=== PATIENT | female | born 1960 | race African-American/Black ===

== ENCOUNTER 2016-08-26 11:54 | Inpatient (IN) | payer MEDICARE, MEDICAID ==
[2016-08-26] MEDS ORDERED: PREDNISONE 20 MG TABLET PO ONE (12:29)
[2016-08-26] MEDS ORDERED: IPRATROPIUM/ALBUTEROL 0.5-2.5 MG/3 ML AMPUL NEB ONE (12:29)
--- NOTE | 2016-08-26 12:31 | ER Document Report ---
ED Medical Screen (RME) - General Chief Complaint: Breathing Difficulty Stated Complaint: DIFFICULTY BREATHING Time Seen by Provider: 08/26/16 12:21 Mode of Arrival: Wheelchair Information source: Patient, Relative Notes: This is a 56-year-old female with a history of asthma and CHF who presents with cough and shortness of breath. She states that she has felt ill for 2 weeks but for the past 3 days it has gotten significantly worse. She recently finished a course of steroids prescribed by her primary care physician Dr. Queen , however she did not take the antibiotic that he prescribed because she said one dose made her feel worse. She denies any chest pain. She has had orthopnea and mild lower extremity swelling. No fevers or chills. She has a cough productive of brownish sputum. She states "I think I have pneumonia" I have greeted and performed a rapid initial assessment of this patient. A comprehensive ED assessment and evaluation of the patient, analysis of test results and completion of the medical decision making process will be conducted by additional ED providers. TRAVEL OUTSIDE OF THE [place] IN LAST 30 DAYS: No - Related Data Allergies/Adverse Reactions: MENDOZA Inhibitors [Mendoza Inhibitors] Allergy (Severe, Verified 08/26/16 12:03) ANGIOEDEMA Past Medical History - Social History Chew tobacco use (# tins/day): No Frequency of alcohol use: Rare - Past Medical History Cardiac Medical History: Reports: Hx Congestive Heart Failure - DX SINCE AGE 31 , Hx Hypertension Pulmonary Medical History: Reports: Hx Asthma, Hx Bronchitis - IN HOSPITAL A MONTH AGO, Hx COPD Denies: Hx Tuberculosis Renal/ Medical History: Denies: Hx Peritoneal Dialysis Psychiatric Medical History: Reports: Hx Depression Past Surgical History: Reports: Hx Tubal Ligation. Denies: Hx Adenoidectomy - Immunizations Hx Diphtheria, Pertussis, Tetanus Vaccination: Yes Physical Exam - Vital signs Vitals: Temp Pulse Resp BP Pulse Ox 98.9 F 95 20 126/66 H 92 08/26/16 12:03 08/26/16 12:03 08/26/16 12:03 08/26/16 12:03 08/26/16 12:03 Course - Vital Signs Vital signs: Temp Pulse Resp BP Pulse Ox 98.9 F 95 24 H 126/66 H 92 08/26/16 12:03 08/26/16 12:03 08/26/16 12:19 08/26/16 12:03 08/26/16 12:03
[2016-08-26 12:59] LABS: ABSOLUTE BASOPHILS # (AUTO) 0.1 10^3/uL (0.0-0.2); ABSOLUTE EOSINOPHILS # (AUTO) 0.1 10^3/uL (0.0-0.6); ABSOLUTE MONOCYTES (AUTO) 0.9 10^3/uL (0.1-1.4); ABSOLUTE NEUT (AUTO) 8.4 10^3/uL (1.7-8.2); BASOPHILS % (AUTO) 0.4 % (0-2); EOSINOPHILS % (AUTO) 0.9 % (0-6); MEAN CORPUSCULAR HEMOGLOBIN 21.4 pg (27.0-33.4); MEAN CORPUSCULAR HGB CONC 30.9 g/dL (32.0-36.0); MEAN CORPUSCULAR VOLUME 70 fl (80-97); MONOCYTES % (AUTO) 6.4 % (3-13); RED BLOOD COUNT 5.62 10^6/uL (3.72-5.28); RED CELL DISTRIBUTION WIDTH 15.8 % (11.5-14.0); SEGMENTED NEUTROPHILS % (AUTO) 62.3 % (42-78); WHITE BLOOD COUNT 13.4 10^3/uL (4.0-10.5)
[2016-08-26 13:12] LABS: ALANINE AMINOTRANSFERASE 23 U/L (9-52); ALBUMIN 3.6 g/dL (3.5-5.0); ALKALINE PHOSPHATASE 65 U/L (38-126); ANION GAP 7 (5-19); ASPARTATE AMINO TRANSFERASE 21 U/L (14-36); BILIRUBIN,DIRECT 0.2 mg/dL (0.0-0.4); BILIRUBIN,TOTAL 0.4 mg/dL (0.2-1.3); BLOOD UREA NITROGEN 8 mg/dL (7-20); CALCIUM 8.9 mg/dL (8.4-10.2); CHLORIDE 97 mmol/L (98-107); CREATINE KINASE 334 U/L (30-135); GLUCOSE 90 mg/dL (75-110); TOTAL PROTEIN 6.6 g/dL (6.3-8.2)
--- NOTE | 2016-08-26 13:17 | RADIOLOGY REPORT (SQ) ---
EXAM DESCRIPTION: CHEST SINGLE VIEW COMPLETED DATE/TIME: 08/26/2016 1:08 pm REASON FOR STUDY: productive cough, SOB, CHF history COMPARISON: 05/23/2014. NUMBER OF VIEWS: One view. TECHNIQUE: Single frontal radiographic view of the chest acquired. LIMITATIONS: None. FINDINGS: LUNGS AND PLEURA: No opacities, masses or pneumothorax. No pleural effusion. MEDIASTINUM AND HILAR STRUCTURES: No masses. Contour normal. HEART AND VASCULAR STRUCTURES: Heart enlarged without failure. Normal vasculature. BONES: No acute findings. HARDWARE: None in the chest. OTHER: No other significant finding. IMPRESSION: HEART ENLARGED WITHOUT FAILURE. NO OTHER SIGNIFICANT RADIOGRAPHIC FINDING IN THE CHEST. TECHNICAL DOCUMENTATION: JOB ID: [id number] [employer]- All Rights Reserved
[2016-08-26 13:24] LABS: CREATINE KINASE MB 2.83 ng/mL (<4.55)
[2016-08-26 13:25] LABS: CARBON DIOXIDE 40 mmol/L (22-30)
[2016-08-26 13:26] LABS: TROPONIN I < 0.012 ng/mL
[2016-08-26] MEDS ORDERED: DOXYCYCLINE HYCLATE INJ 100 MG VIAL IV ONE (13:42)
[2016-08-26] MEDS ORDERED: ALBUTEROL SULFATE 0.083% NEB 2.5 MG/3 ML AMPUL NEB ONE (13:42)
[2016-08-26] MEDS: MAGNESIUM SULFATE/D5W 100 ML IV SCH ×2 (14:14→15:25)
[2016-08-26 14:43] LABS: ARTERIAL BLOOD BASE EXCESS 11.7 mmol/L; ARTERIAL BLOOD O2 SATURATION 96.4 % (94-98)
[2016-08-26] MEDS ORDERED: POTASSIUM CHLORIDE 20 MEQ/15 ML UDCUP PO ONE (15:08)
--- NOTE | 2016-08-26 16:44 | ER Document Report ---
ED General - General Chief Complaint: Breathing Difficulty Stated Complaint: DIFFICULTY BREATHING Time Seen by Provider: 08/26/16 12:21 Mode of Arrival: Wheelchair TRAVEL OUTSIDE OF THE [place] IN LAST 30 DAYS: No - HPI Patient complains to provider of: Difficulty in breathing Notes: Patient coming in for evaluation of shortness of breath. Patient has seen her physician multiple times with prescriptions for steroids and antibiotics. Patient states she did not get her antibiotics filled. Patient states that she continues to smoke. Patient denies fever chills nausea vomiting diarrhea. Patient upon my evaluation is on oxygen to prevent hypoxia. Patient normally does not wear oxygen. - Related Data Allergies/Adverse Reactions: MENDOZA Inhibitors [Mendoza Inhibitors] Allergy (Severe, Verified 08/26/16 12:03) ANGIOEDEMA Home Medications: Current Home Medications Albuterol Sulfate [Albuterol Sulfate 2.5mg/3 mL] 1 vial IH Q4 PRN 08/26/16 [ History] Albuterol Sulfate [Ventolin HFA MDI 18 GM] 2 puff IH Q4 PRN 08/26/16 [History] Alprazolam [Xanax 0.5 mg Tablet] 0.5 mg PO Q12 08/26/16 [History] Budesonide/Formoterol Fumarate [Symbicort Hfa 80-4.5 Mcg Inhaler 6.9 gm] 1 puff IH Q12 08/26/16 [History] Ergocalciferol (Vitamin D2) [Vitamin D2] 50,000 unit PO MO@1000 08/26/16 [ History] Hydrochlorothiazide 25 mg PO DAILY 08/26/16 [History] Hydrocodone/Acetaminophen [Vicodin 5-300 mg Tablet] 2 tab PO Q8 PRN 08/26/16 [ History] Metoprolol Tartrate [Lopressor 25 mg Tablet] 12.5 mg PO Q12 08/26/16 [History] Mometasone Furoate [Nasonex] 1 spray NS BID 08/26/16 [History] Omeprazole 40 mg PO DAILY 08/26/16 [History] Potassium Chloride 10 meq PO DAILY 08/26/16 [History] Simvastatin [Zocor 20 mg Tablet] 20 mg PO QHS 08/26/16 [History] Past Medical History - General Information source: Patient, Relative - Social History Smoking Status: Current Every Day Smoker Chew tobacco use (# tins/day): No Frequency of alcohol use: Rare Family History: Reviewed & Not Pertinent Patient has suicidal ideation: No Patient has homicidal ideation: No - Past Medical History Cardiac Medical History: Reports: Hx Congestive Heart Failure - DX SINCE AGE 31 , Hx Hypertension Pulmonary Medical History: Reports: Hx Asthma, Hx Bronchitis - IN HOSPITAL A MONTH AGO, Hx COPD Denies: Hx Tuberculosis Renal/ Medical History: Denies: Hx Peritoneal Dialysis Psychiatric Medical History: Reports: Hx Depression Past Surgical History: Reports: Hx Tubal Ligation. Denies: Hx Adenoidectomy - Immunizations Hx Diphtheria, Pertussis, Tetanus Vaccination: Yes Hx Pneumococcal Vaccination: 03/16/12 Review of Systems - Review of Systems Constitutional: No symptoms reported EENT: No symptoms reported Cardiovascular: No symptoms reported Respiratory: Short of breath Gastrointestinal: No symptoms reported Genitourinary: No symptoms reported Female Genitourinary: No symptoms reported Musculoskeletal: No symptoms reported Skin: No symptoms reported Hematologic/Lymphatic: No symptoms reported Neurological/Psychological: No symptoms reported -: Yes All other systems reviewed and negative Physical Exam - Vital signs Vitals: Temp Pulse Resp BP Pulse Ox 98.9 F 95 20 126/66 H 92 08/26/16 12:03 08/26/16 12:03 08/26/16 12:03 08/26/16 12:03 08/26/16 12:03 Interpretation: Normal - General General appearance: Appears well, Alert - HEENT Head: Normocephalic, Atraumatic Eyes: Normal Pupils: PERRL - Respiratory Respiratory status: No respiratory distress Chest status: Nontender Breath sounds: Wheezing Chest palpation: Normal - Cardiovascular Rhythm: Regular Heart sounds: Normal auscultation Murmur: No - Abdominal Inspection: Normal Distension: No distension Bowel sounds: Normal Tenderness: Nontender Organomegaly: No organomegaly - Back Back: Normal, Nontender - Extremities General upper extremity: Normal inspection, Nontender, Normal color, Normal ROM , Normal temperature General lower extremity: Normal inspection, Nontender, Normal color, Normal ROM , Normal temperature, Normal weight bearing. No: Kelly's sign - Neurological Neuro grossly intact: Yes Cognition: Normal Orientation: AAOx4 Cushing Coma Scale Eye Opening: Spontaneous Cushing Coma Scale Verbal: Oriented Jose Coma Scale Motor: Obeys Commands Cushing Coma Scale Total: 15 Speech: Normal Motor strength normal: LUE, RUE, LLE, RLE Sensory: Normal - Psychological Associated symptoms: Normal affect, Normal mood - Skin Skin Temperature: Warm Skin Moisture: Dry Skin Color: Normal Course - Re-evaluation Re-evalutation: 08/26/16 19:11 Patient coming in for evaluation of shortness of breath. Patient has an elevated bicarb therefore an ABG was performed showing hypercarbia. Oxygenation still remained steady on O2 therefore will continue this for I do not think patient will require BiPAP at this time. Potassium was replaced orally and IV. Magnesium was given multiple rounds of laser treatments patient was started on doxycycline. Patient's case was discussed with PCP will admit for further evaluation. - Vital Signs Vital signs: Temp Pulse Resp BP Pulse Ox 98.9 F 95 25 H 121/74 94 08/26/16 12:03 08/26/16 12:03 08/26/16 16:00 08/26/16 14:01 08/26/16 16:00 - Laboratory Result Diagrams: 08/26/16 12:33 08/26/16 12:33 Laboratory results interpreted by me: 08/26/16 08/26/16 08/26/16 12:33 12:33 14:30 WBC 13.4 H RBC 5.62 H MCV 70 L MCH 21.4 L MCHC 30.9 L RDW 15.8 H Absolute Neutrophils 8.4 H Carbonic Acid 1.94 H ABG pCO2 64.5 H ABG HCO3 39.1 H ABG Total CO2 41.0 H Potassium 3.0 L* Chloride 97 L Carbon Dioxide 40 H* Creatine Kinase 334 H Critical Care Note - Critical Care Note Total time excluding time spent on procedures (mins): 35 Comments: Multiple evaluation for hypoxia respiratory distress. Discharge - Discharge Clinical Impression: Acute respiratory failure with hypercapnia COPD (chronic obstructive pulmonary disease) Qualifiers: COPD type: unspecified COPD Qualified Code(s): J44.9 - Chronic obstructive pulmonary disease, unspecified Admitting Provider: [facility] Admitted: [facility]
[2016-08-26] MEDS: POTASSI CL 20 MEQ/50 ML RIDER 50 ML IV SCH ×2 (17:34→18:51)
[2016-08-26] MEDS: ALBUTEROL SULFATE 0.083% NEB 2.5 MG/3 ML AMPUL NEB SCH (21:04)
[2016-08-26] MEDS ORDERED: DOCUSATE SODIUM 100 MG CAPSULE PO PRN (21:17)
[2016-08-26] MEDS ORDERED: ACETAMINOPHEN 325 MG TABLET PO PRN (21:18)
[2016-08-26] MEDS ORDERED: METHYLPREDNISOLONE INJ 40 MG/1 ML SDV IV ONE (21:40)
[2016-08-26] MEDS: SIMVASTATIN 10 MG TABLET PO SCH (21:57)
[2016-08-26] MEDS: METOPROLOL TARTRATE 25 MG TABLET PO SCH (21:58)
[2016-08-26] MEDS: ALPRAZOLAM 0.5 MG TABLET PO SCH (21:58)
[2016-08-26] MEDS: BUDESONIDE/FORMOTEROL 80-4.5 MCG 60 PUFF/6.9 GM MDI IH SCH (21:59)
[2016-08-26] MEDS ORDERED: [UNRECOGNIZED DRUG - OTHER] IV ONE (22:00)
[2016-08-26] MEDS ORDERED: D5W IV ONE (22:00)
--- NOTE | 2016-08-26 22:37 | EKG REPORT ---
SEVERITY:- ABNORMAL ECG - SINUS RHYTHM PROBABLE LEFT VENTRICULAR HYPERTROPHY : Confirmed by: Thuan Mondragon 26-Aug-2016 22:36:09
[2016-08-27] MEDS: ALBUTEROL SULFATE 0.083% NEB 2.5 MG/3 ML AMPUL NEB SCH ×2 (00:31→02:10)
[2016-08-27] MEDS: LEVALBUTEROL HCL NEB 1.25 MG/3 ML AMPUL NEB SCH ×4 (02:13→20:48)
[2016-08-27] MEDS: LANSOPRAZOLE 30 MG TAB.RAP.DR PO SCH (05:01)
[2016-08-27] MEDS: METHYLPREDNISOLONE INJ 40 MG/1 ML SDV IV SCH ×4 (05:01→23:14)
[2016-08-27 05:52] LABS: HEMATOCRIT 37.4 % (36.0-47.0); HEMOGLOBIN 11.6 g/dL (12.0-15.5); HGB HCT DIFFERENCE -2.6; MEAN CORPUSCULAR HEMOGLOBIN 21.5 pg (27.0-33.4); MEAN CORPUSCULAR HGB CONC 30.9 g/dL (32.0-36.0); MEAN CORPUSCULAR VOLUME 69 fl (80-97); RED BLOOD COUNT 5.39 10^6/uL (3.72-5.28); RED CELL DISTRIBUTION WIDTH 15.9 % (11.5-14.0); WHITE BLOOD COUNT 15.6 10^3/uL (4.0-10.5)
[2016-08-27 06:04] LABS: ALANINE AMINOTRANSFERASE 24 U/L (9-52); ALBUMIN 3.6 g/dL (3.5-5.0); ALKALINE PHOSPHATASE 61 U/L (38-126); ANION GAP 8 (5-19); ASPARTATE AMINO TRANSFERASE 19 U/L (14-36); BILIRUBIN,DIRECT 0.3 mg/dL (0.0-0.4); BILIRUBIN,TOTAL 0.5 mg/dL (0.2-1.3); BLOOD UREA NITROGEN 12 mg/dL (7-20); CARBON DIOXIDE 33 mmol/L (22-30); CHLORIDE 100 mmol/L (98-107); CHOLESTEROL 206.49 mg/dL (0-200); CREATININE RESULT 0.66 mg/dL (0.52-1.25); Direct HDL 74 mg/dL (>40); GLUCOSE 137 mg/dL (75-110); POTASSIUM 3.8 mmol/L (3.6-5.0); SODIUM 141.1 mmol/L (137-145); TOTAL PROTEIN 6.8 g/dL (6.3-8.2); TRIGLYCERIDES 71 mg/dL (<150)
[2016-08-27 06:14] LABS: DIRECT LDL 105 mg/dL (<100)
[2016-08-27] MEDS: ALPRAZOLAM 0.5 MG TABLET PO SCH ×2 (09:37→21:10)
[2016-08-27] MEDS: HYDROCHLOROTHIAZIDE 25 MG TABLET PO SCH (09:37)
[2016-08-27] MEDS: POTASSIUM CHLORIDE 10 MEQ TABLET.SA PO SCH (09:37)
[2016-08-27] MEDS: BUDESONIDE/FORMOTEROL 80-4.5 MCG 60 PUFF/6.9 GM MDI IH SCH ×2 (09:37→21:09)
[2016-08-27] MEDS: METOPROLOL TARTRATE 25 MG TABLET PO SCH ×2 (09:37→21:10)
[2016-08-27] MEDS: ENOXAPARIN SODIUM INJ 40 MG/0.4 ML DISP.SYRIN SUBCUT SCH (09:38)
[2016-08-27] MEDS ORDERED: [UNRECOGNIZED DRUG - OTHER] IV SCH (10:00)
[2016-08-27] MEDS ORDERED: D5W IV SCH (10:00)
[2016-08-27] MEDS ORDERED: (PENDING PHARMACY ID) (Mometasone Furoate [Nasonex] 1 SPRAY) NS SCH (10:00)
--- NOTE | 2016-08-27 14:11 | PDOC H&P ---
History of Present Illness Admission Date/PCP: 08/27/16 03:25 KEO CLIFFORD Patient complains of: Worsening wheezes and dyspnea History of Present Illness: JEF SIMPSON is a 56 year old female 56 yr old woman with hx of COPD/Asthma/HTN/Hyperlipidemia/CHF- diastolic dysfunction/GERD/YVONNE on BIPAP/Rhinitis/Vitamin Def/Hypokalemia/Depression/ Anxiety disorder/Morbid obesity/Chronic smoker, who has been having worsening wheezes and dyspnea despite course of antibiotics and prednisone on outpatient , hence she decided to come to ER for mgt. Past Medical History Cardiac Medical History: Reports: Congestive Heart Failure - DX SINCE AGE 31, Hypertension Pulmonary Medical History: Reports: Asthma, Bronchitis - IN HOSPITAL A MONTH AGO , Chronic Obstructive Pulmonary Disease (COPD) Denies: Tuberculosis Psychiatric Medical History: Reports: Depression Hematology: Denies: Anemia Past Surgical History Past Surgical History: Reports: Tubal Ligation Denies: Adenoidectomy Social History Smoking Status: Current Some Day Smoker Cigarettes Packs Per Day: 1 Last Time Smoked: 08/26/16 Frequency of Alcohol Use: None Hx Recreational Drug Use: No Drugs: None Hx Prescription Drug Abuse: Yes Family History Family History: Reviewed & Not Pertinent Parental Family History Reviewed: Yes Children Family History Reviewed: Yes Sibling(s) Family History Reviewed.: Yes Medication/Allergy Home Medications: Albuterol Sulfate [Albuterol Sulfate 2.5mg/3 mL] 1 vial IH Q4 PRN 08/26/16 Albuterol Sulfate [Ventolin HFA MDI 18 GM] 2 puff IH Q4 PRN 08/26/16 Alprazolam [Xanax 0.5 mg Tablet] 0.5 mg PO Q12 08/26/16 Budesonide/Formoterol Fumarate [Symbicort Hfa 80-4.5 Mcg Inhaler 6.9 gm] 1 puff IH Q12 08/26/16 Ergocalciferol (Vitamin D2) [Vitamin D2] 50,000 unit PO MO@1000 08/26/16 Hydrochlorothiazide 25 mg PO DAILY 08/26/16 Hydrocodone/Acetaminophen [Vicodin 5-300 mg Tablet] 2 tab PO Q8 PRN 08/26/16 Metoprolol Tartrate [Lopressor 25 mg Tablet] 12.5 mg PO Q12 08/26/16 Mometasone Furoate [Nasonex] 1 spray NS BID 08/26/16 Omeprazole 40 mg PO DAILY 08/26/16 Potassium Chloride 10 meq PO DAILY 08/26/16 Simvastatin [Zocor 20 mg Tablet] 20 mg PO QHS 08/26/16 Allergies/Adverse Reactions: MENDOZA Inhibitors [Mendoza Inhibitors] Allergy (Severe, Verified 08/26/16 12:03) ANGIOEDEMA Review of Systems All systems: as per PMH Constitutional: PRESENT: as per HPI Eyes: PRESENT: as per HPI Ears: PRESENT: as per HPI Nose, Mouth, and Throat: PRESENT: as per HPI Breasts: PRESENT: as per HPI Cardiovascular: PRESENT: dyspnea on exertion Respiratory: PRESENT: cough, dyspnea - wheezes Gastrointestinal: PRESENT: as per HPI Genitourinary: PRESENT: as per HPI Integumentary: ABSENT: as per HPI, erythema, lesions, pruritus, rash, wounds, other Neurological: PRESENT: as per HPI Psychiatric: PRESENT: anxiety Physical Exam Vital Signs: Temp Pulse Resp BP Pulse Ox 97.4 F 83 21 H 116/62 94 08/27/16 11:55 08/27/16 11:55 08/27/16 11:55 08/27/16 11:55 08/27/16 11:55 Intake & Output 08/26/16 08/27/16 08/28/16 06:59 06:59 06:59 Intake Total 521 Balance 521 Weight 113.8 kg General appearance: PRESENT: mild distress, morbidly obese Head exam: PRESENT: atraumatic, normocephalic Eye exam: PRESENT: EOMI, PERRLA Ear exam: PRESENT: normal external ear exam, TM's normal bilaterally Mouth exam: PRESENT: moist, neck supple Neck exam: PRESENT: full ROM Respiratory exam: PRESENT: decreased breath sounds, wheezes Cardiovascular exam: PRESENT: +S1, +S2 Pulses: PRESENT: +2 pedal pulses bilateral GI/Abdominal exam: PRESENT: normal bowel sounds, soft Extremities exam: PRESENT: full ROM Neurological exam: PRESENT: alert, awake, oriented to person, oriented to place , oriented to time, CN II-XII grossly intact Psychiatric exam: PRESENT: anxious, normal mood Results Laboratory Results: 08/27/16 05:24 08/27/16 05:24 08/27/16 08/27/16 08/27/16 05:24 05:24 05:24 WBC 15.6 H RBC 5.39 H Hgb 11.6 L Hct 37.4 MCV 69 L MCH 21.5 L MCHC 30.9 L RDW 15.9 H Plt Count 147 L Sodium 141.1 Potassium 3.8 Chloride 100 Carbon Dioxide 33 H Anion Gap 8 BUN 12 Creatinine 0.66 Est GFR ( Amer) > 60 Est GFR (Non-Af Amer) > 60 Glucose 137 H Calcium 9.0 Total Bilirubin 0.5 AST 19 ALT 24 Alkaline Phosphatase 61 Total Protein 6.8 Albumin 3.6 Triglycerides 71 Cholesterol 206.49 H LDL Cholesterol Direct 105 H VLDL Cholesterol 14.0 HDL Cholesterol 74 TSH 0.08 L Impressions: Chest X-Ray 08/26/16 12:28 IMPRESSION: HEART ENLARGED WITHOUT FAILURE. NO OTHER SIGNIFICANT RADIOGRAPHIC FINDING IN THE CHEST. Assessment & Plan - Diagnosis (1) Acute respiratory failure with hypercapnia Is this a current diagnosis for this admission?: YesPlan: Ct with Oxygen by N/C at 2 L/min; Solumedrol 80 mg q6h IV; Levaquin 500 mg qd IV ; Xopenex nebs 1.25 mg q6h ; Duonebs q4h prn; Symbicort 160/4.5 2 puffs BID. (2) COPD exacerbation Is this a current diagnosis for this admission?: YesPlan: Ct with Oxygen 2 L/min; Solumedrol 80 mg q6h IV; Levaquin 500 mg qd IV; Xopenex nebs 1.25 mg q6h; Duonebs q4h prn; Symbicort 160/4.5 2 puffs BID. (3) Hypertension Is this a current diagnosis for this admission?: YesPlan: Ct with Metoprolol tartrte 12.5 mg BID po; HCTZ 25 mg qd po; 2 g sodium diet. (4) Hyperlipidemia Qualifiers: Hyperlipidemia type: mixed hyperlipidemia Qualified Code(s): E78.2 - Mixed hyperlipidemia Is this a current diagnosis for this admission?: YesPlan: Ct with Simvastatin 20mg qhs po; 200 mg cholesterol diet. (5) Chronic diastolic (congestive) heart failure Is this a current diagnosis for this admission?: YesPlan: Ct with Lasix 20 mg qd po; KCL 20 MEQ qd po; strict input/output chart; Daily wt; monitor chemistries daily. (6) Reflux esophagitis Is this a current diagnosis for this admission?: YesPlan: Ct with Prevacid 30 mg qd po since we do not have Ompeprazole in our formulary. (7) Osteoarthritis Qualifiers: Osteoarthritis location: multiple joints Is this a current diagnosis for this admission?: YesPlan: Ct with [place] 5/325 2 tablets q8h prn; Tylenol 650 mg q6h prn po. (8) Vitamin D deficiency Is this a current diagnosis for this admission?: YesPlan: Ct with Vitamin D 47906wh po weekly on Mondays. (9) Rhinitis, allergic Is this a current diagnosis for this admission?: YesPlan: Ct with Claritin 10 mg qd po; Nasonex nasal spray- 2 sprays daily. (10) Obstructive sleep apnea Is this a current diagnosis for this admission?: YesPlan: Ct with BIPAP; F/u respiratory therapist. (11) Depression Qualifiers: Depression Type: major depressive disorder Is this a current diagnosis for this admission?: YesPlan: Ct with Trazodone 100 mg qd po. (12) Anxiety disorder Is this a current diagnosis for this admission?: YesPlan: Ct with Xanax 0.5 mg BID po (13) Morbid obesity with BMI of 40.0-44.9, adult Is this a current diagnosis for this admission?: YesPlan: Ct with dietary mgt and exercise counseling. (14) Smoker Is this a current diagnosis for this admission?: YesPlan: Ct with Nicotine patch 14 mg qd. (15) DVT prophylaxis Is this a current diagnosis for this admission?: YesPlan: Ct with Lovenox 40 mg qd subcut; SCD. - Time Time Spent: 30 to 50 Minutes Smoking Cessation Education: 3 to 10 minutes Medications reviewed and adjusted accordingly: Yes Anticipated discharge: Home Within: within 72 hours - Inpatient Certification Medical Necessity: Failure to Improve With Outpatient Therapy, Significant Comorbidiites Make Outpatient Treatment Too Risky, Need Close Monitoring Due to Risk of Patient Decompensation, Need for Nebulizer Therapy and Monitoring of Response, Need for IV Antibiotics
[2016-08-27] MEDS ORDERED: NICOTINE 14 MG/24 HR PATCH.TD24 TD ONE (15:00)
[2016-08-27] MEDS: HYDROCODONE/ACETAMINOPHEN 5-325 MG TABLET PO PRN ×2 (15:00→23:15)
[2016-08-27] MEDS: SIMVASTATIN 10 MG TABLET PO SCH (21:09)
[2016-08-28] MEDS: LEVALBUTEROL HCL NEB 1.25 MG/3 ML AMPUL NEB SCH ×4 (02:15→20:49)
[2016-08-28 04:52] LABS: HEMATOCRIT 37.6 % (36.0-47.0); HEMOGLOBIN 11.6 g/dL (12.0-15.5); HGB HCT DIFFERENCE -2.8; MEAN CORPUSCULAR HEMOGLOBIN 21.4 pg (27.0-33.4); MEAN CORPUSCULAR HGB CONC 30.8 g/dL (32.0-36.0); MEAN CORPUSCULAR VOLUME 70 fl (80-97); RED BLOOD COUNT 5.41 10^6/uL (3.72-5.28); RED CELL DISTRIBUTION WIDTH 15.7 % (11.5-14.0); WHITE BLOOD COUNT 21.3 10^3/uL (4.0-10.5)
[2016-08-28 05:08] LABS: BAND NEUTROPHILS % (MANUAL) 1 % (3-5); BASOPHILS % (MANUAL) 0 % (0-2); EOSINOPHILS % (MANUAL) 0 % (0-6); LYMPHOCYTES % (MANUAL) 3 % (13-45); TOTAL CELLS COUNTED 100
[2016-08-28 05:09] LABS: ANISOCYTOSIS 1+; HYPOCHROMASIA 1+; MICROCYTOSIS 2+
[2016-08-28 05:15] LABS: ALANINE AMINOTRANSFERASE 20 U/L (9-52); ALBUMIN 3.7 g/dL (3.5-5.0); ALKALINE PHOSPHATASE 89 U/L (38-126); ANION GAP 9 (5-19); ASPARTATE AMINO TRANSFERASE 18 U/L (14-36); BILIRUBIN,DIRECT 0.3 mg/dL (0.0-0.4); BILIRUBIN,TOTAL 0.5 mg/dL (0.2-1.3); BLOOD UREA NITROGEN 17 mg/dL (7-20); CALCIUM 9.5 mg/dL (8.4-10.2); CARBON DIOXIDE 33 mmol/L (22-30); CHLORIDE 100 mmol/L (98-107); CREATININE RESULT 0.75 mg/dL (0.52-1.25); GLUCOSE 186 mg/dL (75-110); POTASSIUM 3.6 mmol/L (3.6-5.0); SODIUM 141.5 mmol/L (137-145); TOTAL PROTEIN 6.8 g/dL (6.3-8.2)
[2016-08-28] MEDS: LANSOPRAZOLE 30 MG TAB.RAP.DR PO SCH (05:21)
[2016-08-28] MEDS: METHYLPREDNISOLONE INJ 40 MG/1 ML SDV IV SCH (05:22)
[2016-08-28] MEDS: NICOTINE 14 MG/24 HR PATCH.TD24 TD SCH (10:00)
[2016-08-28] MEDS: METOPROLOL TARTRATE 25 MG TABLET PO SCH ×2 (10:00→21:13)
[2016-08-28] MEDS: ENOXAPARIN SODIUM INJ 40 MG/0.4 ML DISP.SYRIN SUBCUT SCH (10:00)
[2016-08-28] MEDS: BUDESONIDE/FORMOTEROL 80-4.5 MCG 60 PUFF/6.9 GM MDI IH SCH ×2 (10:00→21:15)
[2016-08-28] MEDS: HYDROCHLOROTHIAZIDE 25 MG TABLET PO SCH (10:00)
[2016-08-28] MEDS: HYDROCODONE/ACETAMINOPHEN 5-325 MG TABLET PO PRN ×2 (10:00→21:14)
[2016-08-28] MEDS: POTASSIUM CHLORIDE 10 MEQ TABLET.SA PO SCH (10:00)
[2016-08-28] MEDS: ALPRAZOLAM 0.5 MG TABLET PO SCH ×2 (10:00→21:14)
[2016-08-28] MEDS: METHYLPREDNISOLONE INJ 125 MG/2 ML SDV IV SCH ×3 (11:19→23:25)
--- NOTE | 2016-08-28 13:21 | PDOC PROGRESS REPORT ---
Subjective Progress Note for:: 08/28/16 Subjective:: She is getting better and the wheezes and dyspnea have decreased. She has leukocytosis due to steroids; she has no fever. WE will decrease Solumedrol to 60 mg Q6H IV. We will continue to monitor her at [facility]. Physical Exam Vital Signs: Temp Pulse Resp BP Pulse Ox 98.4 F 72 21 H 124/75 100 08/28/16 08:21 08/28/16 08:21 08/28/16 08:21 08/28/16 08:21 08/28/16 08:21 Intake & Output 08/27/16 08/28/16 08/29/16 06:59 06:59 06:59 Intake Total 521 2367 Balance 521 2367 Weight 115.4 kg General appearance: PRESENT: cooperative, mild distress, morbidly obese Head exam: PRESENT: atraumatic, normocephalic Eye exam: PRESENT: EOMI, PERRLA Ear exam: PRESENT: normal external ear exam, TM's normal bilaterally Mouth exam: PRESENT: moist, neck supple, tongue midline Respiratory exam: PRESENT: decreased breath sounds, wheezes Cardiovascular exam: PRESENT: +S1, +S2 Pulses: PRESENT: +2 pedal pulses bilateral GI/Abdominal exam: PRESENT: normal bowel sounds, soft Rectal exam: PRESENT: deferred Extremities exam: PRESENT: full ROM Musculoskeletal exam: PRESENT: full ROM Neurological exam: PRESENT: alert, awake, oriented to person, oriented to place , oriented to time Psychiatric exam: PRESENT: normal mood Results Laboratory Results: 08/28/16 04:31 08/28/16 04:31 08/27/16 08/28/16 08/28/16 05:24 04:31 04:31 WBC 21.3 H RBC 5.41 H Hgb 11.6 L Hct 37.6 MCV 70 L MCH 21.4 L MCHC 30.8 L RDW 15.7 H Plt Count 152 Seg Neutrophils % Not Reportable Lymphocytes % Not Reportable Monocytes % Not Reportable Eosinophils % Not Reportable Basophils % Not Reportable Absolute Neutrophils Not Reportable Absolute Lymphocytes Not Reportable Absolute Monocytes Not Reportable Absolute Eosinophils Not Reportable Absolute Basophils Not Reportable Sodium 141.5 Potassium 3.6 Chloride 100 Carbon Dioxide 33 H Anion Gap 9 BUN 17 Creatinine 0.75 Est GFR ( Amer) > 60 Est GFR (Non-Af Amer) > 60 Glucose 186 H Calcium 9.5 Total Bilirubin 0.5 AST 18 ALT 20 Alkaline Phosphatase 89 Total Protein 6.8 Albumin 3.7 TSH Free T4 1.06 08/28/16 04:31 WBC RBC Hgb Hct MCV MCH MCHC RDW Plt Count Seg Neutrophils % Lymphocytes % Monocytes % Eosinophils % Basophils % Absolute Neutrophils Absolute Lymphocytes Absolute Monocytes Absolute Eosinophils Absolute Basophils Sodium Potassium Chloride Carbon Dioxide Anion Gap BUN Creatinine Est GFR ( Amer) Est GFR (Non-Af Amer) Glucose Calcium Total Bilirubin AST ALT Alkaline Phosphatase Total Protein Albumin TSH 0.02 L Free T4 Impressions: Chest X-Ray 08/26/16 12:28 IMPRESSION: HEART ENLARGED WITHOUT FAILURE. NO OTHER SIGNIFICANT RADIOGRAPHIC FINDING IN THE CHEST. Assessment & Plan - Diagnosis (1) Acute respiratory failure with hypercapnia Is this a current diagnosis for this admission?: YesPlan: Ct with Oxygen by N/C at 2 L/min; Solumedrol 60 mg q6h IV; Levaquin 500 mg qd IV ; Xopenex nebs 1.25 mg q6h ; Duonebs q4h prn; Symbicort 160/4.5 2 puffs BID. (2) COPD exacerbation Is this a current diagnosis for this admission?: YesPlan: Ct with Oxygen 2 L/min; Solumedrol 60 mg q6h IV; Levaquin 500 mg qd IV; Xopenex nebs 1.25 mg q6h; Duonebs q4h prn; Symbicort 160/4.5 2 puffs BID. (3) Hypertension Is this a current diagnosis for this admission?: YesPlan: Ct with Metoprolol tartrte 12.5 mg BID po; HCTZ 25 mg qd po; 2 g sodium diet. (4) Hyperlipidemia Qualifiers: Hyperlipidemia type: mixed hyperlipidemia Qualified Code(s): E78.2 - Mixed hyperlipidemia Is this a current diagnosis for this admission?: YesPlan: Ct with Simvastatin 20mg qhs po; 200 mg cholesterol diet. (5) Chronic diastolic (congestive) heart failure Is this a current diagnosis for this admission?: YesPlan: Ct with Lasix 20 mg qd po; KCL 20 MEQ qd po; strict input/output chart; Daily wt; monitor chemistries daily. (6) Reflux esophagitis Is this a current diagnosis for this admission?: YesPlan: Ct with Prevacid 30 mg qd po since we do not have Ompeprazole in our formulary. (7) Osteoarthritis Qualifiers: Osteoarthritis location: multiple joints Is this a current diagnosis for this admission?: YesPlan: Ct with [place] 5/325 2 tablets q8h prn; Tylenol 650 mg q6h prn po. (8) Vitamin D deficiency Is this a current diagnosis for this admission?: YesPlan: Ct with Vitamin D 65963fv po weekly on Mondays. (9) Rhinitis, allergic Is this a current diagnosis for this admission?: YesPlan: Ct with Claritin 10 mg qd po; Nasonex nasal spray- 2 sprays daily. (10) Obstructive sleep apnea Is this a current diagnosis for this admission?: YesPlan: Ct with BIPAP; F/u respiratory therapist. (11) Depression Qualifiers: Depression Type: major depressive disorder Is this a current diagnosis for this admission?: YesPlan: Ct with Trazodone 100 mg qd po. (12) Anxiety disorder Is this a current diagnosis for this admission?: YesPlan: Ct with Xanax 0.5 mg BID po (13) Morbid obesity with BMI of 40.0-44.9, adult Is this a current diagnosis for this admission?: YesPlan: Ct with dietary mgt and exercise counseling. (14) Smoker Is this a current diagnosis for this admission?: YesPlan: Ct with Nicotine patch 14 mg qd. (15) DVT prophylaxis Is this a current diagnosis for this admission?: YesPlan: Ct with Lovenox 40 mg qd subcut; SCD.
[2016-08-28] MEDS: SIMVASTATIN 10 MG TABLET PO SCH (21:14)
[2016-08-28] MEDS: GUAIFENESIN SYRP 200 MG/10 ML UDC PO PRN (21:30)
[2016-08-29] MEDS: LEVALBUTEROL HCL NEB 1.25 MG/3 ML AMPUL NEB SCH ×4 (02:11→20:37)
[2016-08-29] MEDS: METHYLPREDNISOLONE INJ 125 MG/2 ML SDV IV SCH ×2 (05:44→11:12)
[2016-08-29] MEDS: LANSOPRAZOLE 30 MG TAB.RAP.DR PO SCH (05:45)
[2016-08-29 06:12] LABS: HEMATOCRIT 38.1 % (36.0-47.0); HEMOGLOBIN 11.7 g/dL (12.0-15.5); MEAN CORPUSCULAR HEMOGLOBIN 21.4 pg (27.0-33.4); MEAN CORPUSCULAR HGB CONC 30.8 g/dL (32.0-36.0); MEAN CORPUSCULAR VOLUME 70 fl (80-97); RED BLOOD COUNT 5.46 10^6/uL (3.72-5.28); RED CELL DISTRIBUTION WIDTH 15.8 % (11.5-14.0); WHITE BLOOD COUNT 22.3 10^3/uL (4.0-10.5)
[2016-08-29 06:17] LABS: ALANINE AMINOTRANSFERASE 28 U/L (9-52); ALBUMIN 3.5 g/dL (3.5-5.0); ALKALINE PHOSPHATASE 108 U/L (38-126); ANION GAP 11 (5-19); ASPARTATE AMINO TRANSFERASE 14 U/L (14-36); BILIRUBIN,DIRECT 0.3 mg/dL (0.0-0.4); BILIRUBIN,TOTAL 0.4 mg/dL (0.2-1.3); BLOOD UREA NITROGEN 18 mg/dL (7-20); CALCIUM 9.1 mg/dL (8.4-10.2); CARBON DIOXIDE 32 mmol/L (22-30); CHLORIDE 100 mmol/L (98-107); CREATININE RESULT 0.74 mg/dL (0.52-1.25); GLUCOSE 192 mg/dL (75-110); POTASSIUM 3.3 mmol/L (3.6-5.0); SODIUM 142.5 mmol/L (137-145); TOTAL PROTEIN 6.4 g/dL (6.3-8.2)
[2016-08-29 06:55] LABS: BAND NEUTROPHILS % (MANUAL) 1 % (3-5); BASOPHILS % (MANUAL) 0 % (0-2); EOSINOPHILS % (MANUAL) 0 % (0-6); HYPOCHROMASIA SLIGHT; LYMPHOCYTES % (MANUAL) 6 % (13-45); POLYCHROMASIA SLIGHT; TOTAL CELLS COUNTED 100; TOXIC GRANULATION SLIGHT; TOXIC VACUOLATION PRESENT
[2016-08-29 06:56] LABS: ANISOCYTOSIS SLIGHT; BURR CELLS SLIGHT; MICROCYTOSIS 2+; OVALOCYTES SLIGHT; POIKILOCYTOSIS SLIGHT; SCHISTOCYTES SLIGHT; TEAR DROP CELLS SLIGHT
[2016-08-29] MEDS: IPRATROPIUM/ALBUTEROL 0.5-2.5 MG/3 ML AMPUL NEB PRN (08:20)
[2016-08-29] MEDS: ALPRAZOLAM 0.5 MG TABLET PO SCH ×2 (09:26→21:43)
[2016-08-29] MEDS: METOPROLOL TARTRATE 25 MG TABLET PO SCH ×2 (09:27→21:44)
[2016-08-29] MEDS: POTASSIUM CHLORIDE 10 MEQ TABLET.SA PO SCH (09:27)
[2016-08-29] MEDS: HYDROCHLOROTHIAZIDE 25 MG TABLET PO SCH (09:27)
[2016-08-29] MEDS: BUDESONIDE/FORMOTEROL 80-4.5 MCG 60 PUFF/6.9 GM MDI IH SCH ×2 (09:28→21:43)
[2016-08-29] MEDS: ENOXAPARIN SODIUM INJ 40 MG/0.4 ML DISP.SYRIN SUBCUT SCH (09:28)
[2016-08-29] MEDS: NICOTINE 14 MG/24 HR PATCH.TD24 TD SCH (09:28)
[2016-08-29] MEDS: HYDROCODONE/ACETAMINOPHEN 5-325 MG TABLET PO PRN ×2 (09:51→21:47)
[2016-08-29] MEDS: LEVOFLOXACIN 500 MG/D5W RTU 500 MG/100 ML RTUPB IV SCH (11:11)
--- NOTE | 2016-08-29 13:35 | PDOC PROGRESS REPORT ---
Subjective Progress Note for:: 08/29/16 Subjective:: She is getting better and the wheezes and dyspnea have decreased. She has leukocytosis due to steroids; she has no fever. We will decrease Solumedrol to 60 mg Q6H IV. We will continue to monitor her at [facility].Her potassium today is 3.3 ; we will give her additional KCL [address] with kCL 20 MEQ qd po and monitor her chemistries. Physical Exam Vital Signs: Temp Pulse Resp BP Pulse Ox 97.8 F 90 18 120/75 93 08/29/16 08:23 08/29/16 08:24 08/29/16 08:24 08/29/16 08:23 08/29/16 08:24 Intake & Output 08/28/16 08/29/16 08/30/16 06:59 06:59 06:59 Intake Total 2367 1625 Balance 2367 1625 Weight 115.4 kg 115.5 kg General appearance: PRESENT: cooperative, mild distress, morbidly obese Head exam: PRESENT: atraumatic, normocephalic Eye exam: PRESENT: EOMI, PERRLA Ear exam: PRESENT: normal external ear exam, TM's normal bilaterally Mouth exam: PRESENT: moist, neck supple, tongue midline Respiratory exam: PRESENT: decreased breath sounds, wheezes Cardiovascular exam: PRESENT: +S1, +S2 Pulses: PRESENT: +2 pedal pulses bilateral GI/Abdominal exam: PRESENT: normal bowel sounds, soft Rectal exam: PRESENT: deferred Extremities exam: PRESENT: full ROM Musculoskeletal exam: PRESENT: full ROM Neurological exam: PRESENT: alert, awake, oriented to person, oriented to place , oriented to time Psychiatric exam: PRESENT: normal mood Results Laboratory Results: 08/29/16 05:17 08/29/16 05:17 08/29/16 08/29/16 05:17 05:17 WBC 22.3 H RBC 5.46 H Hgb 11.7 L Hct 38.1 MCV 70 L MCH 21.4 L MCHC 30.8 L RDW 15.8 H Plt Count 142 L Seg Neutrophils % Not Reportable Lymphocytes % Not Reportable Monocytes % Not Reportable Eosinophils % Not Reportable Basophils % Not Reportable Absolute Neutrophils Not Reportable Absolute Lymphocytes Not Reportable Absolute Monocytes Not Reportable Absolute Eosinophils Not Reportable Absolute Basophils Not Reportable Sodium 142.5 Potassium 3.3 L Chloride 100 Carbon Dioxide 32 H Anion Gap 11 BUN 18 Creatinine 0.74 Est GFR ( Amer) > 60 Est GFR (Non-Af Amer) > 60 Glucose 192 H Calcium 9.1 Total Bilirubin 0.4 AST 14 ALT 28 Alkaline Phosphatase 108 Total Protein 6.4 Albumin 3.5 Impressions: Chest X-Ray 08/26/16 12:28 IMPRESSION: HEART ENLARGED WITHOUT FAILURE. NO OTHER SIGNIFICANT RADIOGRAPHIC FINDING IN THE CHEST. Assessment & Plan - Diagnosis (1) Acute respiratory failure with hypercapnia Is this a current diagnosis for this admission?: YesPlan: Ct with Oxygen by N/C at 2 L/min; Solumedrol 60 mg q6h IV; Levaquin 500 mg qd IV ; Xopenex nebs 1.25 mg q6h ; Duonebs q4h prn; Symbicort 160/4.5 2 puffs BID. (2) COPD exacerbation Is this a current diagnosis for this admission?: YesPlan: Ct with Oxygen 2 L/min; Solumedrol 60 mg q6h IV; Levaquin 500 mg qd IV; Xopenex nebs 1.25 mg q6h; Duonebs q4h prn; Symbicort 160/4.5 2 puffs BID. (3) Hypertension Is this a current diagnosis for this admission?: YesPlan: Ct with Metoprolol tartrte 12.5 mg BID po; HCTZ 25 mg qd po; 2 g sodium diet. (4) Hyperlipidemia Qualifiers: Hyperlipidemia type: mixed hyperlipidemia Qualified Code(s): E78.2 - Mixed hyperlipidemia Is this a current diagnosis for this admission?: YesPlan: Ct with Simvastatin 20mg qhs po; 200 mg cholesterol diet. (5) Chronic diastolic (congestive) heart failure Is this a current diagnosis for this admission?: YesPlan: Ct with Lasix 20 mg qd po; KCL 20 MEQ qd po; strict input/output chart; Daily wt; monitor chemistries daily. (6) Reflux esophagitis Is this a current diagnosis for this admission?: YesPlan: Ct with Prevacid 30 mg qd po since we do not have Ompeprazole in our formulary. (7) Osteoarthritis Qualifiers: Osteoarthritis location: multiple joints Is this a current diagnosis for this admission?: YesPlan: Ct with [place] 5/325 2 tablets q8h prn; Tylenol 650 mg q6h prn po. (8) Vitamin D deficiency Is this a current diagnosis for this admission?: YesPlan: Ct with Vitamin D 84726cm po weekly on Mondays. (9) Rhinitis, allergic Is this a current diagnosis for this admission?: YesPlan: Ct with Claritin 10 mg qd po; Nasonex nasal spray- 2 sprays daily. (10) Obstructive sleep apnea Is this a current diagnosis for this admission?: YesPlan: Ct with BIPAP; F/u respiratory therapist. (11) Depression Qualifiers: Depression Type: major depressive disorder Is this a current diagnosis for this admission?: YesPlan: Ct with Trazodone 100 mg qd po. (12) Anxiety disorder Is this a current diagnosis for this admission?: YesPlan: Ct with Xanax 0.5 mg BID po (13) Morbid obesity with BMI of 40.0-44.9, adult Is this a current diagnosis for this admission?: YesPlan: Ct with dietary mgt and exercise counseling. (14) Smoker Is this a current diagnosis for this admission?: YesPlan: Ct with Nicotine patch 14 mg qd. (15) DVT prophylaxis Is this a current diagnosis for this admission?: YesPlan: Ct with Lovenox 40 mg qd subcut; SCD. (16) Hypokalemia Is this a current diagnosis for this admission?: YesPlan: She was given KCL 40 MEQ PO stat; then KCL 20 MEQ daily po; monitor chemistries daily.
[2016-08-29] MEDS ORDERED: POTASSIUM CHLORIDE 20 MEQ/15 ML UDCUP PO ONE (13:45)
[2016-08-29] MEDS: GUAIFENESIN SYRP 200 MG/10 ML UDC PO PRN (15:00)
[2016-08-29] MEDS: FLUTICASONE NASAL SPRAY 50 MCG/SPRY 120 SPRAY/16 GM NASL PRN (15:02)
[2016-08-29] MEDS ORDERED: ALPRAZOLAM 0.5 MG TABLET PO SCH (18:00)
[2016-08-29] MEDS: METHYLPREDNISOLONE INJ 40 MG/1 ML SDV IV SCH (21:43)
[2016-08-29] MEDS: SIMVASTATIN 10 MG TABLET PO SCH (21:43)
[2016-08-29] MEDS ORDERED: METHYLPREDNISOLONE INJ 125 MG/2 ML SDV IV SCH (22:00)
[2016-08-30] MEDS: LEVALBUTEROL HCL NEB 1.25 MG/3 ML AMPUL NEB SCH ×4 (01:50→19:45)
[2016-08-30 05:16] LABS: HEMATOCRIT 38.1 % (36.0-47.0); HEMOGLOBIN 11.8 g/dL (12.0-15.5); HGB HCT DIFFERENCE -2.7; MEAN CORPUSCULAR HEMOGLOBIN 21.4 pg (27.0-33.4); MEAN CORPUSCULAR HGB CONC 31.1 g/dL (32.0-36.0); MEAN CORPUSCULAR VOLUME 69 fl (80-97); RED BLOOD COUNT 5.52 10^6/uL (3.72-5.28); RED CELL DISTRIBUTION WIDTH 15.4 % (11.5-14.0); WHITE BLOOD COUNT 20.3 10^3/uL (4.0-10.5)
[2016-08-30 05:24] LABS: ALANINE AMINOTRANSFERASE 31 U/L (9-52); ALBUMIN 3.4 g/dL (3.5-5.0); ALKALINE PHOSPHATASE 88 U/L (38-126); ANION GAP 9 (5-19); ASPARTATE AMINO TRANSFERASE 16 U/L (14-36); BILIRUBIN,DIRECT 0.3 mg/dL (0.0-0.4); BILIRUBIN,TOTAL 0.4 mg/dL (0.2-1.3); BLOOD UREA NITROGEN 19 mg/dL (7-20); CALCIUM 9.1 mg/dL (8.4-10.2); CARBON DIOXIDE 34 mmol/L (22-30); CHLORIDE 100 mmol/L (98-107); CREATININE RESULT 0.72 mg/dL (0.52-1.25); GLUCOSE 135 mg/dL (75-110); POTASSIUM 3.3 mmol/L (3.6-5.0); SODIUM 142.6 mmol/L (137-145); TOTAL PROTEIN 6.3 g/dL (6.3-8.2)
[2016-08-30] MEDS: METHYLPREDNISOLONE INJ 40 MG/1 ML SDV IV SCH (05:34)
[2016-08-30] MEDS: LANSOPRAZOLE 30 MG TAB.RAP.DR PO SCH (05:34)
[2016-08-30 06:09] LABS: BASOPHILS % (MANUAL) 0 % (0-2); EOSINOPHILS % (MANUAL) 1 % (0-6); LYMPHOCYTES % (MANUAL) 14 % (13-45); TOTAL CELLS COUNTED 100
[2016-08-30 06:14] LABS: ANISOCYTOSIS SLIGHT; HYPOCHROMASIA 1+; MICROCYTOSIS 2+; OVALOCYTES 1+; POIKILOCYTOSIS 2+; STOMATOCYTES SLIGHT; TARGET CELLS 1+
[2016-08-30] MEDS: FLUTICASONE NASAL SPRAY 50 MCG/SPRY 120 SPRAY/16 GM NASL PRN (07:14)
[2016-08-30] MEDS: LORATADINE 10 MG TABLET PO SCH (10:46)
[2016-08-30] MEDS: METOPROLOL TARTRATE 25 MG TABLET PO SCH ×2 (10:46→21:14)
[2016-08-30] MEDS: HYDROCHLOROTHIAZIDE 25 MG TABLET PO SCH (10:47)
[2016-08-30] MEDS: POTASSIUM CHLORIDE 10 MEQ TABLET.SA PO SCH (10:47)
[2016-08-30] MEDS: ALPRAZOLAM 0.5 MG TABLET PO SCH ×2 (10:47→21:15)
[2016-08-30] MEDS: LEVOFLOXACIN 500 MG/D5W RTU 500 MG/100 ML RTUPB IV SCH (10:47)
[2016-08-30] MEDS: NICOTINE 14 MG/24 HR PATCH.TD24 TD SCH (10:47)
[2016-08-30] MEDS: ENOXAPARIN SODIUM INJ 40 MG/0.4 ML DISP.SYRIN SUBCUT SCH (10:48)
[2016-08-30] MEDS: BUDESONIDE/FORMOTEROL 80-4.5 MCG 60 PUFF/6.9 GM MDI IH SCH ×2 (10:50→21:14)
--- NOTE | 2016-08-30 11:44 | PDOC PROGRESS REPORT ---
Subjective Progress Note for:: 08/30/16 Subjective:: Patient complains of dryness of the throat and a lot of coughing last night. Wheezing has resolved. Shortness of breath significantly improved. Tolerating being off oxygen. Denies any chills or fever, diarrhea, PND orthopnea, no chest pain. Physical Exam Vital Signs: Temp Pulse Resp BP Pulse Ox 97.7 F 77 18 124/74 91 L 08/30/16 07:07 08/30/16 08:39 08/30/16 08:39 08/30/16 07:07 08/30/16 08:39 Intake & Output 08/29/16 08/30/16 08/31/16 06:59 06:59 06:59 Intake Total 1625 1885 Balance 1625 1885 Weight 115.5 kg 116.5 kg General appearance: PRESENT: no acute distress, cooperative, morbidly obese Head exam: PRESENT: normocephalic Eye exam: PRESENT: EOMI Ear exam: PRESENT: normal external ear exam. ABSENT: drainage Mouth exam: PRESENT: moist, neck supple Neck exam: ABSENT: JVD Respiratory exam: PRESENT: clear to auscultation quita. ABSENT: rhonchi, wheezes Cardiovascular exam: PRESENT: RRR. ABSENT: gallop GI/Abdominal exam: PRESENT: soft. ABSENT: distended, tenderness Extremities exam: ABSENT: pedal edema Neurological exam: PRESENT: alert, awake, oriented to person, oriented to place , oriented to time, oriented to situation Skin exam: PRESENT: dry, warm. ABSENT: cyanosis Results Laboratory Results: 08/30/16 04:41 08/30/16 04:41 08/29/16 08/30/16 08/30/16 05:17 04:41 04:41 WBC 20.3 H RBC 5.52 H Hgb 11.8 L Hct 38.1 MCV 69 L MCH 21.4 L MCHC 31.1 L RDW 15.4 H Plt Count 133 L Seg Neutrophils % Not Reportable Lymphocytes % Not Reportable Monocytes % Not Reportable Eosinophils % Not Reportable Basophils % Not Reportable Absolute Neutrophils Not Reportable Absolute Lymphocytes Not Reportable Absolute Monocytes Not Reportable Absolute Eosinophils Not Reportable Absolute Basophils Not Reportable Sodium 142.6 Potassium 3.3 L Chloride 100 Carbon Dioxide 34 H Anion Gap 9 BUN 19 Creatinine 0.72 Est GFR ( Amer) > 60 Est GFR (Non-Af Amer) > 60 Glucose 135 H Calcium 9.1 Magnesium 2.2 Total Bilirubin 0.4 AST 16 ALT 31 Alkaline Phosphatase 88 Total Protein 6.3 Albumin 3.4 L Impressions: Chest X-Ray 08/26/16 12:28 IMPRESSION: HEART ENLARGED WITHOUT FAILURE. NO OTHER SIGNIFICANT RADIOGRAPHIC FINDING IN THE CHEST. Assessment & Plan - Diagnosis (1) Acute respiratory failure with hypercapnia Is this a current diagnosis for this admission?: Yes (2) COPD exacerbation Is this a current diagnosis for this admission?: Yes (3) Chronic diastolic (congestive) heart failure Is this a current diagnosis for this admission?: Yes (4) Depression Qualifiers: Depression Type: major depressive disorder Major depression episode severity: unspecified Is this a current diagnosis for this admission?: Yes (5) Hyperlipidemia Qualifiers: Hyperlipidemia type: mixed hyperlipidemia Qualified Code(s): E78.2 - Mixed hyperlipidemia Is this a current diagnosis for this admission?: Yes (6) Hypertension Qualifiers: Hypertension type: essential hypertension Qualified Code(s): I10 - Essential (primary) hypertension Is this a current diagnosis for this admission?: Yes (7) Morbid obesity with BMI of 40.0-44.9, adult Is this a current diagnosis for this admission?: Yes (8) Obstructive sleep apnea Is this a current diagnosis for this admission?: Yes (9) Reflux esophagitis Is this a current diagnosis for this admission?: Yes (10) Anxiety disorder Qualifiers: Anxiety disorder type: unspecified anxiety disorder Qualified Code(s ): F41.9 - Anxiety disorder, unspecified Is this a current diagnosis for this admission?: Yes - Time Time Spent with patient: 25-34 minutes - Plan Summary Plan Summary: We are going to discontinue IV steroids and shifted to oral prednisone. Continue antibiotics. Try Tessalon Perles for coughing. Humidified oxygen. Discontinue intravenous fluids. If patient continues to be improving and stable in the morning we will discharge home.
[2016-08-30] MEDS ORDERED: PREDNISONE 20 MG TABLET PO ONE (12:00)
[2016-08-30] MEDS: BENZONATATE 100 MG CAPSULE PO SCH ×2 (13:46→21:14)
[2016-08-30] MEDS: IPRATROPIUM/ALBUTEROL 0.5-2.5 MG/3 ML AMPUL NEB PRN (17:25)
[2016-08-30] MEDS: SIMVASTATIN 10 MG TABLET PO SCH (21:15)
[2016-08-30] MEDS: HYDROCODONE/ACETAMINOPHEN 5-325 MG TABLET PO PRN (21:23)
[2016-08-31] MEDS: LEVALBUTEROL HCL NEB 1.25 MG/3 ML AMPUL NEB SCH ×4 (02:09→20:11)
[2016-08-31] MEDS: BENZONATATE 100 MG CAPSULE PO SCH ×3 (05:34→22:07)
[2016-08-31] MEDS: LANSOPRAZOLE 30 MG TAB.RAP.DR PO SCH (05:34)
[2016-08-31] MEDS: POTASSIUM CHLORIDE 10 MEQ TABLET.SA PO SCH (09:28)
[2016-08-31] MEDS: LEVOFLOXACIN 500 MG TABLET PO SCH (09:29)
[2016-08-31] MEDS: LORATADINE 10 MG TABLET PO SCH (09:29)
[2016-08-31] MEDS: PREDNISONE 20 MG TABLET PO SCH (09:29)
[2016-08-31] MEDS: NICOTINE 14 MG/24 HR PATCH.TD24 TD SCH (09:29)
[2016-08-31] MEDS: ALPRAZOLAM 0.5 MG TABLET PO SCH ×2 (09:29→22:07)
[2016-08-31] MEDS: HYDROCHLOROTHIAZIDE 25 MG TABLET PO SCH (09:30)
[2016-08-31] MEDS: BUDESONIDE/FORMOTEROL 80-4.5 MCG 60 PUFF/6.9 GM MDI IH SCH ×2 (09:31→22:08)
[2016-08-31] MEDS: METOPROLOL TARTRATE 25 MG TABLET PO SCH ×2 (09:31→22:07)
[2016-08-31] MEDS: ENOXAPARIN SODIUM INJ 40 MG/0.4 ML DISP.SYRIN SUBCUT SCH (09:31)
--- NOTE | 2016-08-31 10:47 | PDOC PROGRESS REPORT ---
Subjective Progress Note for:: 08/31/16 Subjective:: Patient reportedly did not feel well today. Still with some cough but medications are helping. Has some wheezing earlier this morning. Otherwise no reported respiratory distress, temperature spikes, nausea vomiting, diarrhea. Patient does not want to go home yet. Physical Exam Vital Signs: Temp Pulse Resp BP Pulse Ox 97.4 F 66 20 108/62 93 08/31/16 07:07 08/31/16 08:01 08/31/16 08:01 08/31/16 07:07 08/31/16 08:01 Intake & Output 08/30/16 08/31/16 09/01/16 06:59 06:59 06:59 Intake Total 1885 1364 Balance 1885 1364 Weight 116.5 kg 116.8 kg General appearance: PRESENT: no acute distress, morbidly obese Head exam: PRESENT: normocephalic Eye exam: PRESENT: EOMI Mouth exam: PRESENT: moist, neck supple Neck exam: ABSENT: JVD Respiratory exam: PRESENT: wheezes - Mild bilateral, air entry is good. ABSENT : crackles, rhonchi Cardiovascular exam: PRESENT: RRR. ABSENT: gallop GI/Abdominal exam: PRESENT: soft. ABSENT: distended - Obese, tenderness Extremities exam: ABSENT: pedal edema Neurological exam: PRESENT: alert, awake, oriented to person, oriented to place , oriented to time, oriented to situation Skin exam: PRESENT: dry, warm. ABSENT: cyanosis Results Laboratory Results: 08/30/16 04:41 08/30/16 04:41 Impressions: Chest X-Ray 08/26/16 12:28 IMPRESSION: HEART ENLARGED WITHOUT FAILURE. NO OTHER SIGNIFICANT RADIOGRAPHIC FINDING IN THE CHEST. Assessment & Plan - Diagnosis (1) Acute respiratory failure with hypercapnia Is this a current diagnosis for this admission?: Yes (2) COPD exacerbation Is this a current diagnosis for this admission?: Yes (3) Chronic diastolic (congestive) heart failure Is this a current diagnosis for this admission?: Yes (4) Depression Qualifiers: Depression Type: major depressive disorder Major depression episode severity: unspecified Is this a current diagnosis for this admission?: Yes (5) Hyperlipidemia Qualifiers: Hyperlipidemia type: mixed hyperlipidemia Qualified Code(s): E78.2 - Mixed hyperlipidemia Is this a current diagnosis for this admission?: Yes (6) Hypertension Qualifiers: Hypertension type: essential hypertension Qualified Code(s): I10 - Essential (primary) hypertension Is this a current diagnosis for this admission?: Yes (7) Morbid obesity with BMI of 40.0-44.9, adult Is this a current diagnosis for this admission?: Yes (8) Obstructive sleep apnea Is this a current diagnosis for this admission?: Yes (9) Reflux esophagitis Is this a current diagnosis for this admission?: Yes (10) Anxiety disorder Qualifiers: Anxiety disorder type: unspecified anxiety disorder Qualified Code(s ): F41.9 - Anxiety disorder, unspecified Is this a current diagnosis for this admission?: Yes - Time Time Spent with patient: 25-34 minutes - Plan Summary Plan Summary: Continue oral steroids. Continue nebulizers as needed. We will begin Combivent inhalers as needed. Patient already on inhaled steroids as well. Out of bed and ambulate around. Continue other medication and supportive care. Patient refused to go home today. Possibly discharge in a.m. if she feels better. Replace potassium and recheck level in the morning.
[2016-08-31] MEDS ORDERED: POTASSIUM CHLORIDE 10 MEQ TABLET.SA PO ONE (11:30)
[2016-08-31] MEDS: IPRATROPIUM/ALBUTEROL 120 PUFF/4 GM MDI IH PRN ×2 (12:28→18:01)
[2016-08-31] MEDS: HYDROCODONE/ACETAMINOPHEN 5-325 MG TABLET PO PRN (22:06)
[2016-08-31] MEDS: SIMVASTATIN 10 MG TABLET PO SCH (22:07)
[2016-09-01] MEDS: IPRATROPIUM/ALBUTEROL 120 PUFF/4 GM MDI IH PRN ×2 (02:09→17:30)
[2016-09-01] MEDS: LEVALBUTEROL HCL NEB 1.25 MG/3 ML AMPUL NEB SCH ×4 (02:23→20:03)
[2016-09-01] MEDS: ZOLPIDEM TARTRATE 5 MG TABLET PO PRN (04:24)
[2016-09-01] MEDS: LANSOPRAZOLE 30 MG TAB.RAP.DR PO SCH (05:13)
[2016-09-01] MEDS: BENZONATATE 100 MG CAPSULE PO SCH ×3 (05:13→21:26)
[2016-09-01 07:30] LABS: HEMATOCRIT 39.2 % (36.0-47.0); HEMOGLOBIN 12.2 g/dL (12.0-15.5); HGB HCT DIFFERENCE -2.6; MEAN CORPUSCULAR HEMOGLOBIN 21.5 pg (27.0-33.4); MEAN CORPUSCULAR HGB CONC 31.1 g/dL (32.0-36.0); MEAN CORPUSCULAR VOLUME 69 fl (80-97); RED BLOOD COUNT 5.67 10^6/uL (3.72-5.28); RED CELL DISTRIBUTION WIDTH 15.8 % (11.5-14.0); WHITE BLOOD COUNT 19.7 10^3/uL (4.0-10.5)
[2016-09-01 07:43] LABS: ANION GAP 8 (5-19); BLOOD UREA NITROGEN 21 mg/dL (7-20); CALCIUM 8.5 mg/dL (8.4-10.2); CARBON DIOXIDE 35 mmol/L (22-30); CHLORIDE 96 mmol/L (98-107); CREATININE RESULT 0.75 mg/dL (0.52-1.25); GLUCOSE 76 mg/dL (75-110); POTASSIUM 3.3 mmol/L (3.6-5.0); SODIUM 139.1 mmol/L (137-145)
[2016-09-01] MEDS ORDERED: ERGOCALCIFEROL (VITAMIN D2) 50000 UNIT (1.25 MG) CAPSULE PO SCH (10:00)
[2016-09-01] MEDS: POTASSIUM CHLORIDE 10 MEQ TABLET.SA PO SCH (10:28)
[2016-09-01] MEDS: HYDROCODONE/ACETAMINOPHEN 5-325 MG TABLET PO PRN ×2 (10:28→21:30)
[2016-09-01] MEDS: LEVOFLOXACIN 500 MG TABLET PO SCH (10:31)
[2016-09-01] MEDS: HYDROCHLOROTHIAZIDE 25 MG TABLET PO SCH (10:32)
[2016-09-01] MEDS: PREDNISONE 20 MG TABLET PO SCH (10:32)
[2016-09-01] MEDS: ALPRAZOLAM 0.5 MG TABLET PO SCH ×2 (10:32→21:26)
[2016-09-01] MEDS: LORATADINE 10 MG TABLET PO SCH (10:32)
[2016-09-01] MEDS: METOPROLOL TARTRATE 25 MG TABLET PO SCH ×2 (10:32→21:24)
[2016-09-01] MEDS: NICOTINE 14 MG/24 HR PATCH.TD24 TD SCH (10:32)
[2016-09-01] MEDS: BUDESONIDE/FORMOTEROL 80-4.5 MCG 60 PUFF/6.9 GM MDI IH SCH ×2 (10:33→21:24)
[2016-09-01] MEDS: ENOXAPARIN SODIUM INJ 40 MG/0.4 ML DISP.SYRIN SUBCUT SCH (10:33)
--- NOTE | 2016-09-01 13:17 | PDOC PROGRESS REPORT ---
Subjective Progress Note for:: 09/01/16 Subjective:: She is getting better and the wheezes and dyspnea have decreased. She has leukocytosis due to steroids; she has no fever. We will decrease Solumedrol to 60 mg Q6H IV. We will continue to monitor her at [facility].Her potassium today is 3.3 ; we will give her additional KCL 40 MEQ IV x1 and ct with kCL 20 MEQ qd po and monitor her chemistries.We will decrease her Prednisone to 40 mg qd po. For possible discharge home tomorrow. Physical Exam Vital Signs: Temp Pulse Resp BP Pulse Ox 98.9 F 79 22 H 115/69 94 09/01/16 12:50 09/01/16 12:50 09/01/16 12:50 09/01/16 12:50 09/01/16 12:50 Intake & Output 08/31/16 09/01/16 09/02/16 06:59 06:59 06:59 Intake Total 1364 2315 360 Balance 1364 2315 360 Weight 116.5 kg 117.1 kg General appearance: PRESENT: cooperative, mild distress, morbidly obese Head exam: PRESENT: normocephalic Eye exam: PRESENT: EOMI, PERRLA Ear exam: PRESENT: normal external ear exam Mouth exam: PRESENT: moist, neck supple, tongue midline Neck exam: PRESENT: full ROM Respiratory exam: PRESENT: decreased breath sounds, symmetrical, wheezes Cardiovascular exam: PRESENT: +S1, +S2 Pulses: PRESENT: +2 pedal pulses bilateral GI/Abdominal exam: PRESENT: normal bowel sounds, soft Rectal exam: PRESENT: deferred Extremities exam: PRESENT: full ROM Musculoskeletal exam: PRESENT: full ROM Neurological exam: PRESENT: alert, awake, oriented to person, oriented to place , oriented to time Psychiatric exam: PRESENT: anxious Results Laboratory Results: 09/01/16 06:24 09/01/16 06:24 09/01/16 09/01/16 06:24 06:24 WBC 19.7 H RBC 5.67 H Hgb 12.2 Hct 39.2 MCV 69 L MCH 21.5 L MCHC 31.1 L RDW 15.8 H Plt Count 124 L Sodium 139.1 Potassium 3.3 L Chloride 96 L Carbon Dioxide 35 H Anion Gap 8 BUN 21 H Creatinine 0.75 Est GFR ( Amer) > 60 Est GFR (Non-Af Amer) > 60 Glucose 76 Calcium 8.5 Impressions: Chest X-Ray 08/26/16 12:28 IMPRESSION: HEART ENLARGED WITHOUT FAILURE. NO OTHER SIGNIFICANT RADIOGRAPHIC FINDING IN THE CHEST. Assessment & Plan - Diagnosis (1) Acute respiratory failure with hypercapnia Is this a current diagnosis for this admission?: YesPlan: Ct with Oxygen by N/C at 2 L/min; Prednisone 60 mg qd po; Levaquin 500 mg qd po ; Xopenex nebs 1.25 mg q6h ; Duonebs q4h prn; Symbicort 160/4.5 2 puffs BID. (2) COPD exacerbation Is this a current diagnosis for this admission?: YesPlan: Ct with Oxygen 2 L/min; Prednisone 60 mg qd po; Levaquin 500 mg qd po; Xopenex nebs 1.25 mg q6h; Duonebs q4h prn; Symbicort 160/4.5 2 puffs BID; Ct with Tessalon Perles 200 mg q8h po. (3) Hypertension Qualifiers: Hypertension type: essential hypertension Qualified Code(s): I10 - Essential (primary) hypertension Is this a current diagnosis for this admission?: YesPlan: Ct with Metoprolol tartrte 12.5 mg BID po; HCTZ 25 mg qd po; 2 g sodium diet. (4) Hyperlipidemia Qualifiers: Hyperlipidemia type: mixed hyperlipidemia Qualified Code(s): E78.2 - Mixed hyperlipidemia Is this a current diagnosis for this admission?: YesPlan: Ct with Simvastatin 20mg qhs po; 200 mg cholesterol diet. (5) Chronic diastolic (congestive) heart failure Is this a current diagnosis for this admission?: YesPlan: Ct with Lasix 20 mg qd po; KCL 20 MEQ qd po; strict input/output chart; Daily wt; monitor chemistries daily. (6) Reflux esophagitis Is this a current diagnosis for this admission?: YesPlan: Ct with Prevacid 30 mg qd po since we do not have Ompeprazole in our formulary. (7) Osteoarthritis Qualifiers: Osteoarthritis location: multiple joints Is this a current diagnosis for this admission?: YesPlan: Ct with [place] 5/325 2 tablets q8h prn; Tylenol 650 mg q6h prn po. (8) Vitamin D deficiency Is this a current diagnosis for this admission?: YesPlan: Ct with Vitamin D 57780jk po weekly on Mondays. (9) Rhinitis, allergic Is this a current diagnosis for this admission?: YesPlan: Ct with Claritin 10 mg qd po; Nasonex nasal spray- 2 sprays daily. (10) Obstructive sleep apnea Is this a current diagnosis for this admission?: YesPlan: Ct with BIPAP; F/u respiratory therapist. (11) Depression Qualifiers: Depression Type: major depressive disorder Major depression episode severity: unspecified Is this a current diagnosis for this admission?: YesPlan: Ct with Trazodone 100 mg qd po. (12) Anxiety disorder Qualifiers: Anxiety disorder type: unspecified anxiety disorder Qualified Code(s ): F41.9 - Anxiety disorder, unspecified Is this a current diagnosis for this admission?: YesPlan: Ct with Xanax 1 mg BID po (13) Morbid obesity with BMI of 40.0-44.9, adult Is this a current diagnosis for this admission?: YesPlan: Ct with dietary mgt and exercise counseling. (14) Smoker Is this a current diagnosis for this admission?: YesPlan: Ct with Nicotine patch 14 mg qd. (15) DVT prophylaxis Is this a current diagnosis for this admission?: YesPlan: Ct with Lovenox 40 mg qd subcut; SCD. (16) Hypokalemia Is this a current diagnosis for this admission?: YesPlan: She was given KCL 40 MEQ IV stat today; then KCL 20 MEQ daily po; monitor chemistries daily.
[2016-09-01] MEDS: POTASSI CL 20 MEQ/50 ML RIDER 50 ML IV SCH ×2 (15:45→17:31)
[2016-09-01] MEDS: SIMVASTATIN 10 MG TABLET PO SCH (21:26)
[2016-09-02] MEDS: ZOLPIDEM TARTRATE 5 MG TABLET PO PRN (01:09)
[2016-09-02] MEDS: LEVALBUTEROL HCL NEB 1.25 MG/3 ML AMPUL NEB SCH ×2 (02:17→07:57)
[2016-09-02] MEDS: BENZONATATE 100 MG CAPSULE PO SCH (05:51)
[2016-09-02] MEDS: LANSOPRAZOLE 30 MG TAB.RAP.DR PO SCH (05:52)
[2016-09-02 06:11] LABS: ANION GAP 6 (5-19); BLOOD UREA NITROGEN 17 mg/dL (7-20); CALCIUM 8.1 mg/dL (8.4-10.2); CARBON DIOXIDE 35 mmol/L (22-30); CHLORIDE 97 mmol/L (98-107); GLUCOSE 116 mg/dL (75-110); POTASSIUM 3.2 mmol/L (3.6-5.0); SODIUM 138.3 mmol/L (137-145)
[2016-09-02 06:42] LABS: HEMATOCRIT 39.3 % (36.0-47.0); HEMOGLOBIN 12.2 g/dL (12.0-15.5); MEAN CORPUSCULAR HEMOGLOBIN 21.6 pg (27.0-33.4); MEAN CORPUSCULAR HGB CONC 31.1 g/dL (32.0-36.0); MEAN CORPUSCULAR VOLUME 69 fl (80-97); RED BLOOD COUNT 5.66 10^6/uL (3.72-5.28); RED CELL DISTRIBUTION WIDTH 15.8 % (11.5-14.0); WHITE BLOOD COUNT 22.8 10^3/uL (4.0-10.5)
[2016-09-02 06:52] LABS: HGB HCT DIFFERENCE -2.7
[2016-09-02 07:09] LABS: BASOPHILS % (MANUAL) 0 % (0-2); EOSINOPHILS % (MANUAL) 0 % (0-6); LYMPHOCYTES % (MANUAL) 25 % (13-45); TOTAL CELLS COUNTED 100
[2016-09-02 07:13] LABS: ANISOCYTOSIS SLIGHT; BURR CELLS SLIGHT; HYPOCHROMASIA 1+; MICROCYTOSIS 2+; OVALOCYTES 1+; POIKILOCYTOSIS 1+; TOXIC GRANULATION SLIGHT; TOXIC VACUOLATION PRESENT
[2016-09-02] MEDS: NICOTINE 14 MG/24 HR PATCH.TD24 TD SCH (09:35)
[2016-09-02] MEDS: POTASSIUM CHLORIDE 10 MEQ TABLET.SA PO SCH (09:38)
[2016-09-02] MEDS: ALPRAZOLAM 0.5 MG TABLET PO SCH (09:38)
[2016-09-02] MEDS: LORATADINE 10 MG TABLET PO SCH (09:38)
[2016-09-02] MEDS: HYDROCHLOROTHIAZIDE 25 MG TABLET PO SCH (09:39)
[2016-09-02] MEDS: LEVOFLOXACIN 500 MG TABLET PO SCH (09:40)
[2016-09-02] MEDS: ENOXAPARIN SODIUM INJ 40 MG/0.4 ML DISP.SYRIN SUBCUT SCH (09:41)
[2016-09-02] MEDS: METOPROLOL TARTRATE 25 MG TABLET PO SCH (09:43)
[2016-09-02] MEDS: BUDESONIDE/FORMOTEROL 80-4.5 MCG 60 PUFF/6.9 GM MDI IH SCH (09:48)
[2016-09-02] MEDS ORDERED: PREDNISONE 20 MG TABLET PO SCH (10:00)
[2016-09-02] MEDS: HYDROCODONE/ACETAMINOPHEN 5-325 MG TABLET PO PRN (12:03)
--- NOTE | 2016-09-02 12:07 | PDOC DISCHARGE SUMMARY ---
General - Admit/Disc Date/PCP Admission Date/Primary Care Provider: 08/27/16 03:25 KEO CLIFFORD Discharge Date: 09/02/16 - Discharge Diagnosis (1) Acute respiratory failure with hypercapnia Is this a current diagnosis for this admission?: Yes (2) COPD exacerbation Is this a current diagnosis for this admission?: Yes (3) Hypertension Is this a current diagnosis for this admission?: Yes (4) Hyperlipidemia Is this a current diagnosis for this admission?: Yes (5) Chronic diastolic (congestive) heart failure Is this a current diagnosis for this admission?: Yes (6) Reflux esophagitis Is this a current diagnosis for this admission?: Yes (7) Osteoarthritis Is this a current diagnosis for this admission?: Yes (8) Vitamin D deficiency Is this a current diagnosis for this admission?: Yes (9) Rhinitis, allergic Is this a current diagnosis for this admission?: Yes (10) Obstructive sleep apnea Is this a current diagnosis for this admission?: Yes (11) Depression Is this a current diagnosis for this admission?: Yes (12) Anxiety disorder Is this a current diagnosis for this admission?: Yes (13) Morbid obesity with BMI of 40.0-44.9, adult Is this a current diagnosis for this admission?: Yes (14) Smoker Is this a current diagnosis for this admission?: Yes (15) DVT prophylaxis Is this a current diagnosis for this admission?: Yes (16) Hypokalemia Is this a current diagnosis for this admission?: Yes - Additional Information Discharge Activity: Activity As Tolerated Home Medications: Albuterol Sulfate [Albuterol Sulfate 2.5mg/3 mL] 1 vial IH Q4 PRN 08/26/16 Albuterol Sulfate [Ventolin HFA MDI 18 GM] 2 puff IH Q4 PRN 08/26/16 Budesonide/Formoterol Fumarate [Symbicort HFA 80-4.5 mcg Inhaler 6.9 gm] 1 puff IH Q12 08/26/16 Ergocalciferol (Vitamin D2) [Vitamin D2] 50,000 unit PO MO@1000 08/26/16 Hydrochlorothiazide 25 mg PO DAILY 08/26/16 Hydrocodone/Acetaminophen [Vicodin 5-300 mg Tablet] 2 tab PO Q8 PRN 08/26/16 Metoprolol Tartrate [Lopressor 25 mg Tablet] 12.5 mg PO Q12 08/26/16 Mometasone Furoate [Nasonex] 1 spray NS BID 08/26/16 Omeprazole 40 mg PO DAILY 08/26/16 Simvastatin [Zocor 20 mg Tablet] 20 mg PO QHS 08/26/16 Alprazolam [Xanax 0.5 mg Tablet] 1 mg PO Q12 #0 09/02/16 Benzonatate [Tessalon Perles 100 mg Capsule] 200 mg PO Q8 #60 capsule 09/02/16 Levofloxacin [Levaquin 500 mg Tablet] 500 mg PO DAILY #7 tablet 09/02/16 Loratadine [Claritin 10 mg Tablet] 10 mg PO DAILY #0 tablet 09/02/16 Nicotine [Nicoderm 14 mg/24 Hr Transdermal Patch] 1 each TD DAILY #30 patch.td24 09/02/16 Potassium Chloride [Klor-Con 10 Meq Tablet.sa] 20 meq PO BID #60 tablet.sa 09/02 Prednisone [Deltasone 20 mg Tablet] 20 mg PO DAILY #7 tablet 09/02/16 History of Present Illness History of Present Illness: JEF SIMPSON is a 56 year old female 56 yr old woman with hx of COPD/Asthma/HTN/Hyperlipidemia/CHF- diastolic dysfunction/GERD/YVONNE on BIPAP/Rhinitis/Vitamin Def/Hypokalemia/Depression/ Anxiety disorder/Morbid obesity/Chronic smoker, who has been having worsening wheezes and dyspnea despite course of antibiotics and prednisone on outpatient , hence she decided to come to ER for mgt. Hospital Course Hospital Course: 56 yr old woman who was admitted at [facility] for acute hypercapnic respiratory failure secondary to acute COPD/asthma exacerbation/Hypokalemia. She was put on oxygen therapy, nebulizations, IV solumedrol and IV Levaquin and both were switched to prednisone po and levaquin po as her condition improved. She had several doses of both IV and PO KCL 40 MEQ during this admission due to repeated hypokalemia. Her magnesium was normal and we increased her kCL to 20 MEQ BID po on discharge. She is stable and will be discharged home today to follow with her PCP on 09/10/2016. Physical Exam Vital Signs: Temp Pulse Resp BP Pulse Ox 97.8 F 71 18 114/73 92 09/02/16 07:15 09/02/16 07:57 09/02/16 07:57 09/02/16 07:15 09/02/16 07:57 Intake & Output 09/01/16 09/02/16 09/03/16 06:59 06:59 06:59 Intake Total 5263 318 Balance 2314 3182 Weight 117.1 kg 118.1 kg General appearance: PRESENT: no acute distress, cooperative, morbidly obese Head exam: PRESENT: atraumatic, normocephalic Eye exam: PRESENT: EOMI, PERRLA Ear exam: PRESENT: normal external ear exam, TM's normal bilaterally Mouth exam: PRESENT: moist, neck supple Neck exam: PRESENT: full ROM Respiratory exam: PRESENT: decreased breath sounds, symmetrical Cardiovascular exam: PRESENT: +S1, +S2 Pulses: PRESENT: +2 pedal pulses bilateral GI/Abdominal exam: PRESENT: normal bowel sounds, soft Rectal exam: PRESENT: deferred Extremities exam: PRESENT: full ROM Musculoskeletal exam: PRESENT: full ROM Neurological exam: PRESENT: alert, awake, oriented to person, oriented to place , oriented to time Psychiatric exam: PRESENT: normal mood Results Laboratory Results: 09/02/16 06:24 09/02/16 04:58 09/02/16 09/02/16 09/02/16 04:58 04:58 06:24 WBC Cancelled 22.8 H RBC Cancelled 5.66 H Hgb Cancelled 12.2 Hct Cancelled 39.3 MCV Cancelled 69 L MCH Cancelled 21.6 L MCHC Cancelled 31.1 L RDW Cancelled 15.8 H Plt Count Cancelled 127 L Seg Neutrophils % Cancelled Not Reportable Lymphocytes % Cancelled Not Reportable Monocytes % Cancelled Not Reportable Eosinophils % Cancelled Not Reportable Basophils % Cancelled Not Reportable Absolute Neutrophils Cancelled Not Reportable Absolute Lymphocytes Cancelled Not Reportable Absolute Monocytes Cancelled Not Reportable Absolute Eosinophils Cancelled Not Reportable Absolute Basophils Cancelled Not Reportable Sodium 138.3 Potassium 3.2 L Chloride 97 L Carbon Dioxide 35 H Anion Gap 6 BUN 17 Creatinine 0.70 Est GFR ( Amer) > 60 Est GFR (Non-Af Amer) > 60 Glucose 116 H Calcium 8.1 L Impressions: Chest X-Ray 08/26/16 12:28 IMPRESSION: HEART ENLARGED WITHOUT FAILURE. NO OTHER SIGNIFICANT RADIOGRAPHIC FINDING IN THE CHEST.
[2016-09-02] MEDS ORDERED: POTASSIUM CHLORIDE 20 MEQ/15 ML UDCUP PO ONE (12:30)
[2016-09-02 12:51] VITALS: BP 130/65
== END 2016-09-02 13:32 | disposition home or self-care (01) | DRG 190 ==
LOC: ER 11:54 → UNDOADMIN 17:30 → EH 17:30 → 3W 21:00 → EH 21:00 → 3W 08-27 03:25 → EH 08-27 03:25
PROVIDERS: ADMIT Internal Medicine; ATTEND Internal Medicine
PROC: 3E0F73Z Introduction of Anti-inflammatory into Respiratory Tract, Via Natural or Artificial Opening (ICD-10-PCS; principal; 2016-08-27)
DX: J44.1 Chronic obstructive pulmonary disease with (acute) exacerbation (principal); J96.02 Acute respiratory failure with hypercapnia; I50.32 Chronic diastolic (congestive) heart failure; Z68.42 Body mass index [BMI] 45.0-49.9, adult; J45.901 Unspecified asthma with (acute) exacerbation; I11.0 Hypertensive heart disease with heart failure; E78.5 Hyperlipidemia, unspecified; K21.9 Gastro-esophageal reflux disease without esophagitis; G47.33 Obstructive sleep apnea (adult) (pediatric); T38.0X5A Adverse effect of glucocorticoids and synthetic analogues, initial encounter; D72.829 Elevated white blood cell count, unspecified; E87.6 Hypokalemia; F32.9 Major depressive disorder, single episode, unspecified; F41.9 Anxiety disorder, unspecified; F17.210 Nicotine dependence, cigarettes, uncomplicated; E66.01 Morbid (severe) obesity due to excess calories; M19.90 Unspecified osteoarthritis, unspecified site; E55.9 Vitamin D deficiency, unspecified; J30.9 Allergic rhinitis, unspecified; Z79.51 Long term (current) use of inhaled steroids; Z88.8 Allergy status to other drugs, medicaments and biological substances; Z98.51 Tubal ligation status
CPT/HCPCS: 36415; 71010; 80048; 80053; 80061; 82550; 82553; 82803; 83735; 83880; 84439; 84443; 84484; 85025; 85027; 87040; 93005; 93010; 94640; 96365; 96366; 96368; 99291; J1650; J1956; J2920; J2930; J3475; J3480; J3490; J7512; J7620

== ENCOUNTER → 2016-12-29 | Outpatient (CLI) | payer MEDICARE, MEDICAID ==
--- NOTE | 2016-12-30 12:34 | WOMENS IMAGING REPORT ---
EXAM DESCRIPTION: BILAT SCREENING MAMMO W/CAD COMPLETED DATE/TIME: 12/29/2016 11:18 am REASON FOR STUDY: ROUTINE SCREENING; Z12.31 Z12.31 ENCNTR SCREEN MAMMOGRAM FOR MALIGNANT NEOPLASM O F CESARIO COMPARISON: 2010 to 2015 TECHNIQUE: Standard craniocaudal and mediolateral oblique views of each breast recorded using Dormifya l acquisition. LIMITATIONS: None. FINDINGS: No masses, calcifications or architectural distortion. No areas of suspicion. Read with the assistance of CAD. .[facility] - R2 Cenova Version 1.3 .[facility] Imaging - R2 Cenova Version 1.3 .[facility] - R2 Cenova Version 2.4 .[facility] - R2 Cenova Version 2.4 .[facility] - R2 Inside [employer] Professional Version 9.2 IMPRESSION: NORMAL MAMMOGRAM. BIRADS 1. BREAST DENSITY: b. There are scattered areas of fibroglandular density. BIRAD: 1 NEGATIVE RECOMMENDATION: ROUTINE SCREENING COMMENT: The patient has been notified of the results by letter per SA requirements. Additional no tification policies are in place for contacting patient with suspicious or incomplete findings. Quality ID #[id number]: The [employer] recommends an annual screening mammogram for women aged 40 years or over. This facility utilizes a reminder system to ensure that all patients receive reminder letters, and/or direct phone calls for appointments. This includes reminders for routine scr eening mammograms, diagnostic mammograms, or other Breast Imaging Interventions when appropriate. Th is patient will be placed in the appropriate reminder system. The [employer] (ACR) has developed recommendations for screening MRI of the breast s in certain patient populations, to be used in conjunction with mammography. Breast MRI surveillanc e may be appropriate for women with more than 20% lifetime risk of developing breast cancer as deter mined by genetic testing, significant family history of the disease, or history of mantle radiation f or Hodgkins Disease. ACR Practice Guidelines 2008. TECHNICAL DOCUMENTATION: FINDING NUMBER: (1) ASSESSMENT: (1) JOB ID: [id number] [employer]- All Rights Reserved
== END ==
LOC: WI 11:09
PROVIDERS: ATTEND Internal Medicine
DX: Z12.31 Encounter for screening mammogram for malignant neoplasm of breast (principal)
CPT/HCPCS: 77067

== ENCOUNTER → 2017-02-22 | Outpatient (CLI) | payer MEDICARE, MEDICAID ==
--- NOTE | 2017-02-23 15:28 | RADIOLOGY REPORT (SQ) ---
EXAM DESCRIPTION: PET CT LIMITED COMPLETED DATE/TIME: 02/22/2017 6:16 pm REASON FOR STUDY: SOLITARY PULMONARY NODULE R91.1 SOLITARY PULMONARY NODULE COMPARISON: CT chest 01/15/2017, [facility] RADIONUCLIDE AND DOSE: 11.3 mCi F18 FDG The route of agent administration: Intravenous FASTING BLOOD SUGAR: 74 mg/dl CONTRAST TYPE AND DOSE: No CT contrast given. TECHNIQUE: Blood glucose level was verified. Above dose of FDG was injected intravenously. 2-D seg mented attenuation correction images were obtained from the base of the skull to the midthighs. Nonc ontrast CT images were obtained for attenuation correction and fusion with emission images. CT image s were performed without oral or intravenous contrast and are not sensitive for parenchymal lesions. A series of overlapping emission PET images were obtained. [facility] by the radiologist. Images stored on PACS. LIMITATIONS: None. FINDINGS: HEAD AND NECK: Asymmetric increased activity is present along the right supraglottic laryn x at the vocal cord, with SUV of 8.6. This is worrisome for either a right-sided primary vocal cord tumor, or increased uptake related to left vocal cord paralysis. No other increased uptake in the head or neck. No cervical adenopathy. CHEST: In the posterior aspect right lower lobe on axial image 92, a 9 to 10 mm nodule is present wit h slightly lobular borders, just deep to the posterior right 9th rib. SUV is less than 1.0. ABDOMEN AND PELVIS: No areas of abnormal metabolic activity in the abdomen or pelvis. Expected physi ologic activity is present in the genitourinary system and bowel. PROXIMAL LOWER EXTREMITIES: No areas of abnormal metabolic activity in the soft tissues of the lower extremities. BONES: No abnormal metabolic activity in the visualized skeleton. ADDITIONAL CT FINDINGS: Centrilobular emphysema, upper lobe predominant. Mild cardiomegaly and spott y coronary artery calcification. Tiny hiatal hernia. Degenerative changes lower lumbar spine. OTHER: Liver background activity 2.5 SUV. Blood pool background activity 2.0 SUV. IMPRESSION: 9 to 10 mm nodule in the right posterior lung base. No increased metabolic activity by PET-CT. This is at the size threshold for PET-CT measurements, and because of its close proximity to the hemidiaphragm, a false negative result for this nodule could occur. Recommend short interval fo llow-up noncontrast CT in 3 to 6 months to exclude growth or change Asymmetric increased activity along the right supraglottic larynx at the vocal cord with SUV of 8.6. This could either represent a primary right supraglottic laryngeal tumor, or could be artifact relat ed to left-sided vocal cord paralysis. ENT evaluation recommended. TECHNICAL DOCUMENTATION: JOB ID: [id number] [employer]- All Rights Reserved
== END ==
LOC: RAD 14:38
PROVIDERS: ATTEND Internal Medicine Critical Care Medicine
DX: R91.1 Solitary pulmonary nodule (principal)
CPT/HCPCS: 78814; A9552

== ENCOUNTER 2017-09-28 20:50 | Emergency (ER) | payer MEDICARE, MEDICAID ==
[2017-09-28] MEDS ORDERED: IPRATROPIUM/ALBUTEROL 0.5-2.5 MG/3 ML AMPUL NEB ONE (21:05)
--- NOTE | 2017-09-28 21:05 | ER Document Report ---
ED Respiratory Problem - General Stated Complaint: DIFFICULTY BREATHING Time Seen by Provider: 09/28/17 20:55 Notes: Patient is a 57-year-old female who comes emergency department for chief complaint of difficulty breathing, she was found by EMS to be in respiratory distress with initial pulse oxygen saturation 85% on room air, patient does not have home oxygen. She is a former smoker, has a history of asthma, has home nebulizer. She also wears a CPAP. Patient denies fever or chills, she reports tightness in her chest, she states she has been worsening since yesterday. Other past medical history includes congestive heart failure. She denies lower extremely swelling, states she is taking her Lasix. Patient has already been given 2 DuoNeb treatments and 125 mg of Solu-Medrol. She states she already feels much better. TRAVEL OUTSIDE OF THE [place] IN LAST 30 DAYS: No - Related Data Allergies/Adverse Reactions: MENDOZA Inhibitors [Mendoza Inhibitors] Allergy (Severe, Verified 08/26/16 12:03) ANGIOEDEMA Past Medical History - General Information source: Patient - Social History Smoking Status: Never Smoker Frequency of alcohol use: None Drug Abuse: None Lives with: Family Family History: Reviewed & Not Pertinent - Past Medical History Cardiac Medical History: Reports: Hx Congestive Heart Failure - DX SINCE AGE 31 , Hx Hypertension Pulmonary Medical History: Reports: Hx Asthma, Hx Bronchitis, Hx COPD Denies: Hx Tuberculosis Renal/ Medical History: Denies: Hx Peritoneal Dialysis Psychiatric Medical History: Reports: Hx Depression Past Surgical History: Reports: Hx Tubal Ligation. Denies: Hx Adenoidectomy - Immunizations Hx Diphtheria, Pertussis, Tetanus Vaccination: Yes Hx Pneumococcal Vaccination: 03/16/12 Review of Systems - Review of Systems Constitutional: No symptoms reported EENT: No symptoms reported Cardiovascular: No symptoms reported Respiratory: See HPI Gastrointestinal: No symptoms reported Genitourinary: No symptoms reported Female Genitourinary: No symptoms reported Musculoskeletal: No symptoms reported Skin: No symptoms reported Hematologic/Lymphatic: No symptoms reported Neurological/Psychological: No symptoms reported Physical Exam - Notes Notes: GENERAL: Alert, interacts well. No acute distress. HEAD: Normocephalic, atraumatic. EYES: Pupils equal, round, and reactive to light. Extraocular movements intact. ENT: Oral mucosa moist, tongue midline. NECK: Full range of motion. Supple. Trachea midline. LUNGS: Decreased breath sounds bilaterally, expiratory wheezes noted throughout , no rales or rhonchi. Mild tachypnea, no labored breathing or respiratory distress. HEART: Regular rate and rhythm. No murmur ABDOMEN: Soft, non-tender. Non-distended. Bowel sounds present in all 4 quadrants. EXTREMITIES: Moves all 4 extremities spontaneously. No edema, normal radial and dorsalis pedis pulses bilaterally. No cyanosis. BACK: no cervical, thoracic, lumbar midline tenderness. No saddle anesthesia, normal distal neurovascular exam. NEUROLOGICAL: Alert and oriented x3. Normal speech. [cranial nerves II through XII grossly intact]. PSYCH: Patient asks a lot of questions, is mildly tachypneic and anxious appearing SKIN: Warm, dry, normal turgor. No rashes or lesions noted. Course - Re-evaluation Re-evalutation: Patient initially wheezing, mildly tachypneic but she is also anxious. No hypoxia here. Reported initial hypoxia, patient states he feels much better after treatments. Chest x-ray unremarkable. Troponin is not elevated. After DuoNeb and magnesium symptoms completely resolved. Patient states feels excellent and wants to go home. CBC and chemistry generally unremarkable. CK is elevated at 900, I discussed this with patient, she states that she spends most of her time in bed. Normal renal functioning. Patient was given fluids. I discussed this with patient and she is to have this rechecked with primary care, she is still requesting to leave. Patient ambulated without difficulty or hypoxia. Patient will be prescribed steroids for COPD/asthma exacerbation, she has home treatments and nebulizer at home as well, discussed close follow-up and return precautions, patient states understanding and agreement with plan. - Laboratory Result Diagrams: 09/28/17 20:32 09/28/17 20:32 Laboratory results interpreted by me: 09/28/17 09/28/17 09/28/17 20:32 20:32 21:30 WBC 10.6 H RBC 5.51 H MCV 67 L MCH 21.9 L RDW 16.6 H VBG pH 7.46 H Potassium 3.4 L Carbon Dioxide 31 H Est GFR (Non-Af Amer) 59 L Creatine Kinase 929 H Discharge - Discharge Clinical Impression: Wheezing, Difficulty breathing, COPD exacerbation Condition: Stable Disposition: HOME, SELF-CARE Additional Instructions: Your workup does not show any concerning findings, your examination is consistent with asthma/COPD exacerbation. Take the steroids as prescribed, continue current treatments including albuterol at home, follow up with your provider for additional management in the next 2-3 days. Return if you worsen in anyway including difficulty breathing, spiking fever, or any other concerning symptoms. Prescriptions: Prednisone 60 mg PO DAILY #15 tablet Referrals: VIVIANE BUSTOS MD [ACTIVE STAFF] - Follow up as needed
[2017-09-28 21:32] LABS: HEMATOCRIT 37.1 % (36.0-47.0); HEMOGLOBIN 12.1 g/dL (12.0-15.5); MEAN CORPUSCULAR HEMOGLOBIN 21.9 pg (27.0-33.4); MEAN CORPUSCULAR HGB CONC 32.5 g/dL (32.0-36.0); MEAN CORPUSCULAR VOLUME 67 fl (80-97); PLATELET COUNT 184 10^3/uL (150-450); RED BLOOD COUNT 5.51 10^6/uL (3.72-5.28); RED CELL DISTRIBUTION WIDTH 16.6 % (11.5-14.0); WHITE BLOOD COUNT 10.6 10^3/uL (4.0-10.5)
[2017-09-28 21:36] LABS: VENOUS BLOOD BASE EXCESS 6.5 mmol/L; VENOUS BLOOD HCO3 31.3 mmol/L (20-32); VENOUS BLOOD PCO2 45.4 mmHg (35-63); VENOUS BLOOD PH 7.46 (7.30-7.42)
[2017-09-28 21:39] LABS: ALANINE AMINOTRANSFERASE 21 U/L (9-52); ALBUMIN 4.2 g/dL (3.5-5.0); ALKALINE PHOSPHATASE 76 U/L (38-126); ANION GAP 14 (5-19); ASPARTATE AMINO TRANSFERASE 29 U/L (14-36); BILIRUBIN,DIRECT 0.3 mg/dL (0.0-0.4); BILIRUBIN,TOTAL 0.3 mg/dL (0.2-1.3); BLOOD UREA NITROGEN 8 mg/dL (7-20); CALCIUM 9.5 mg/dL (8.4-10.2); CARBON DIOXIDE 31 mmol/L (22-30); CHLORIDE 98 mmol/L (98-107); CREATINE KINASE 929 U/L (30-135); GLUCOSE 97 mg/dL (75-110); POTASSIUM 3.4 mmol/L (3.6-5.0); SODIUM 142.7 mmol/L (137-145); TOTAL PROTEIN 7.3 g/dL (6.3-8.2)
--- NOTE | 2017-09-28 21:41 | RADIOLOGY REPORT (SQ) ---
EXAM DESCRIPTION: CHEST SINGLE VIEW COMPLETED DATE/TIME: 09/28/2017 9:16 pm REASON FOR STUDY: shortness of breath COMPARISON: 08/26/2016 NUMBER OF VIEWS: One view. TECHNIQUE: Single frontal radiographic view of the chest acquired. LIMITATIONS: None. FINDINGS: LUNGS AND PLEURA: No opacities, masses or pneumothorax. No pleural effusion. MEDIASTINUM AND HILAR STRUCTURES: No masses. Contour normal. HEART AND VASCULAR STRUCTURES: Heart enlarged without failure. Normal vasculature. BONES: No acute findings. HARDWARE: None in the chest. OTHER: No other significant finding. IMPRESSION: HEART ENLARGED WITHOUT FAILURE. NO OTHER SIGNIFICANT RADIOGRAPHIC FINDING IN THE CHEST. TECHNICAL DOCUMENTATION: JOB ID: [id number] [employer]- All Rights Reserved Reading location - IP/workstation name: [email or web address]
[2017-09-28] MEDS: MAGNESIUM SULFATE/D5W 1 GM/100 ML RTUPB IV SCH ×2 (21:47→22:26)
[2017-09-28 21:50] LABS: CREATINE KINASE MB 2.62 ng/mL (<4.55)
[2017-09-28 21:51] LABS: TROPONIN I < 0.012 ng/mL
[2017-09-28] MEDS ORDERED: LORAZEPAM 1 MG TABLET PO ONE (22:23)
[2017-09-28] MEDS ORDERED: NORMAL SALINE 1000 ML 250 ML IV ONE (22:50)
[2017-09-28 23:37] LABS: ABSOLUTE LYMPHOCYTES# (MANUAL) 4.2 10^3/uL (0.5-4.7); ABSOLUTE MONOCYTES # (MANUAL) 0.7 10^3/uL (0.1-1.4); ABSOLUTE NEUTROPHILS# (MANUAL) 5.3 10^3/uL (1.7-8.2); BASOPHILS % (MANUAL) 1 % (0-2); EOSINOPHILS % (MANUAL) 2 % (0-6); LYMPHOCYTES % (MANUAL) 36 % (13-45); MONOCYTES % (MANUAL) 7 % (3-13); SEGMENTED NEUTROPHILS % (MAN) 50 % (42-78); TOTAL CELLS COUNTED 100
[2017-09-28 23:41] LABS: ANISOCYTOSIS 1+; HYPOCHROMASIA 2+; OVALOCYTES 1+; PLATELET COMMENT ADEQUATE; PLATELET LARGE PRESENT
--- NOTE | 2017-09-29 10:02 | EKG REPORT ---
SEVERITY:- ABNORMAL ECG - SINUS RHYTHM NONSPECIFIC INTRAVENTRICULAR CONDUCTION DELAY PROBABLE LEFT VENTRICULAR HYPERTROPHY : Confirmed by: Thuan Mondragon 29-Sep-2017 10:01:32
== END 2017-09-29 02:18 | disposition home or self-care (01) ==
LOC: ER 20:50
DX: J44.1 Chronic obstructive pulmonary disease with (acute) exacerbation (principal); J45.901 Unspecified asthma with (acute) exacerbation; R74.8 Abnormal levels of other serum enzymes; I11.0 Hypertensive heart disease with heart failure; I50.9 Heart failure, unspecified; F41.9 Anxiety disorder, unspecified; R07.89 Other chest pain; Z79.899 Other long term (current) drug therapy; Z87.891 Personal history of nicotine dependence; Z88.8 Allergy status to other drugs, medicaments and biological substances
CPT/HCPCS: 93005; 99285; 96361; 96375; 96365; 36415; 82553; 82550; 85025; 80053; 84484; 82803; 71045; 93010; J3475; A9270 ×2; J7030; J7620

== ENCOUNTER 2017-10-19 12:35 | Emergency (ER) | payer MEDICARE, MEDICAID ==
--- NOTE | 2017-10-19 14:29 | ER Document Report ---
HPI - HPI Patient complains to provider of: Posterior upper left leg pain Pain Level: 5 - REPRODUCTIVE Reproductive: DENIES: : Past Medical History - Social History Family History: Reviewed & Not Pertinent - Past Medical History Cardiac Medical History: Reports: Hx Congestive Heart Failure - DX SINCE AGE 31 , Hx Hypercholesterolemia, Hx Hypertension Pulmonary Medical History: Reports: Hx Asthma, Hx Bronchitis, Hx COPD Denies: Hx Tuberculosis Renal/ Medical History: Denies: Hx Peritoneal Dialysis Musculoskeletal Medical History: Reports Hx Arthritis Psychiatric Medical History: Reports: Hx Depression Past Surgical History: Reports: Hx Tubal Ligation. Denies: Hx Adenoidectomy - Immunizations Hx Diphtheria, Pertussis, Tetanus Vaccination: Yes Hx Pneumococcal Vaccination: 03/16/12 Vertical Provider Document - INFECTION CONTROL TRAVEL OUTSIDE OF THE [place] IN LAST 30 DAYS: No Course - Vital Signs Vital signs: Temp Pulse Resp BP Pulse Ox 99.2 F 78 18 115/62 92 10/19/17 13:00 10/19/17 13:00 10/19/17 13:00 10/19/17 13:00 10/19/17 13:00 Discharge - Discharge Referrals: KEO CLIFFORD MD [Primary Care Provider] - Follow up as needed
--- NOTE | 2017-10-19 14:30 | ER Document Report ---
ED Medical Screen (RME) - General Chief Complaint: Hip Pain Stated Complaint: LEG PAIN Time Seen by Provider: 10/19/17 14:28 Mode of Arrival: Ambulatory Information source: Patient Notes: 57-year-old obese female complaining of left posterior upper leg pain for 1 week. No history DVT or PE. She thinks maybe it is a pulled muscle but she is not sure. TRAVEL OUTSIDE OF THE [place] IN LAST 30 DAYS: No - Related Data Allergies/Adverse Reactions: MENDOZA Inhibitors [Mendoza Inhibitors] Allergy (Severe, Verified 08/26/16 12:03) ANGIOEDEMA Past Medical History - Past Medical History Cardiac Medical History: Reports: Hx Congestive Heart Failure - DX SINCE AGE 31 , Hx Hypercholesterolemia, Hx Hypertension Pulmonary Medical History: Reports: Hx Asthma, Hx Bronchitis, Hx COPD Denies: Hx Tuberculosis Renal/ Medical History: Denies: Hx Peritoneal Dialysis Musculoskeltal Medical History: Reports Hx Arthritis Psychiatric Medical History: Reports: Hx Depression Past Surgical History: Reports: Hx Tubal Ligation. Denies: Hx Adenoidectomy - Immunizations Hx Diphtheria, Pertussis, Tetanus Vaccination: Yes Physical Exam - Vital signs Vitals: Temp Pulse Resp BP Pulse Ox 99.2 F 78 18 115/62 92 10/19/17 13:00 10/19/17 13:00 10/19/17 13:00 10/19/17 13:00 10/19/17 13:00 Course - Vital Signs Vital signs: Temp Pulse Resp BP Pulse Ox 99.2 F 78 18 115/62 92 10/19/17 13:00 10/19/17 13:00 10/19/17 13:00 10/19/17 13:00 10/19/17 13:00 Doctor's Discharge - Discharge Referrals: KEO CLIFFORD MD [Primary Care Provider] - Follow up as needed
--- NOTE | 2017-10-19 15:01 | ER Document Report ---
ED General - General Chief Complaint: Hip Pain Stated Complaint: LEG PAIN Time Seen by Provider: 10/19/17 14:28 Mode of Arrival: Ambulatory TRAVEL OUTSIDE OF THE [place] IN LAST 30 DAYS: No - HPI Notes: 57-year-old female presents to the ED with complaints of left thigh pain for the last 7 days, suspects that she pulled a muscle so she has been taking ibuprofen without full relief. Denies being on blood thinners. Patient came for the right to ambulate. Denies any lower back pain, states pain is in her hamstrings on the left. Patient has been immobile recently due to injury, denies any recent surgeries. Denies fevers, chills, chest pain,palpitations, shortness of breath, dyspnea, nausea, vomiting, diarrhea, abdominal pain, hematuria,blurred vision, double vision, loss of vision, speech changes, LH, dizziness, syncope, headaches, wheezing, ST, URI, neck pain, weakness, bowel or bladder dysfunction, saddle anesthesia, numbness or tingling in bilateral upper or lower extremities equally, muscle paralysis, weakness in bilateral upper or lower extremities equally or rash. Denies IV drug use. - Related Data Allergies/Adverse Reactions: MENDOZA Inhibitors [Mendoza Inhibitors] Allergy (Severe, Verified 08/26/16 12:03) ANGIOEDEMA Past Medical History - General Information source: Patient - Social History Smoking Status: Unknown if Ever Smoked Family History: Reviewed & Not Pertinent - Past Medical History Cardiac Medical History: Reports: Hx Congestive Heart Failure - DX SINCE AGE 31 , Hx Hypercholesterolemia, Hx Hypertension Pulmonary Medical History: Reports: Hx Asthma, Hx Bronchitis, Hx COPD Denies: Hx Tuberculosis Renal/ Medical History: Denies: Hx Peritoneal Dialysis Musculoskeletal Medical History: Reports Hx Arthritis Psychiatric Medical History: Reports: Hx Depression Past Surgical History: Reports: Hx Tubal Ligation. Denies: Hx Adenoidectomy - Immunizations Hx Diphtheria, Pertussis, Tetanus Vaccination: Yes Hx Pneumococcal Vaccination: 03/16/12 Review of Systems - Review of Systems Constitutional: No symptoms reported EENT: No symptoms reported Cardiovascular: No symptoms reported Respiratory: No symptoms reported Gastrointestinal: No symptoms reported Genitourinary: No symptoms reported Female Genitourinary: No symptoms reported Musculoskeletal: See HPI Skin: No symptoms reported Hematologic/Lymphatic: No symptoms reported Neurological/Psychological: No symptoms reported Physical Exam - Vital signs Vitals: Temp Pulse Resp BP Pulse Ox 99.2 F 78 18 115/62 92 10/19/17 13:00 10/19/17 13:00 10/19/17 13:00 10/19/17 13:00 10/19/17 13:00 - Notes Notes: PHYSICAL EXAMINATION: GENERAL: Well-appearing, well-nourished and in no acute distress. HEAD: Atraumatic, normocephalic. EYES: Pupils equal round and reactive to light, extraocular movements intact, conjunctiva are normal. ENT: Nares patent, oropharynx clear without exudates. Moist mucous membranes. NECK: Normal range of motion, supple without lymphadenopathy LUNGS: Breath sounds clear to auscultation bilaterally and equal. No wheezes rales or rhonchi. HEART: Regular rate and rhythm without murmurs ABDOMEN: Soft, nontender, nondistended abdomen. No guarding, no rebound. No masses appreciated. Female : deferred Musculoskeletal: Normal range of motion, no pitting or edema. No cyanosis. Left posterior aspect of thigh with tenderness on palpation near the lateral aspect. Dtr + 2 in BLE. Full motor and sensory function to BLE equally. No open wounds. No induration or drainage. Strength 5 out of 5 bilaterally equally. left knee examination normal. Squeeze test negative. left Hip examination normal. Pulses + 2 bilaterally and equally.negative squeeze bilaterally and equally. NEUROLOGICAL: Cranial nerves grossly intact. Normal speech, normal gait. Normal sensory, motor exams PSYCH: Normal mood, normal affect. SKIN: Warm, Dry, normal turgor, no rashes or lesions noted. Course - Re-evaluation Re-evalutation: 10/19/17 15:00 Afebrile vitals stable and in no distress 57-year-old female for evaluation of left thigh pain for the last 5 days. Venous Doppler negative for left lower extremity DVT, x-ray negative for acute fracture or dislocation. Patient likely has a muscular strain. Blood work not needed. Low suspicion for neuropathic pain. Advised to follow-up with energy management specialist within 1 week if still symptomatic, apply heat 20 minutes on 20 minutes off several times a day, take muscle relaxers as directed do not drive, drink or operate heavy machinery as this can cause sedation and impaired judgment. Alternate between ibuprofen and Tylenol for pain control. Apply a sterile advised to provide support. I have reevaluated this patient multiple times and no significant life threatening changes, no signs of toxicity, sepsis or peritonitis are noted. I estimate there is LOW risk for OPEN FRACTURE, COMPARTMENT SYNDROME, TENDON RUPTURE, ACUTE NEUROVASCULAR INJURY, or RETAINED FOREIGN BODY, The patient and I have discussed the diagnosis and risks, and we agree with discharging home and close follow-up. We also discussed returning to the Emergency Department immediately if new or worsening symptoms occur with the understanding that symptoms and presentations can change. At this time will discharge with return precautions and follow-up recommendations. Verbal discharge instructions given a the bedside and opportunity for questions given. We have discussed the symptoms which are most concerning (e.g., saddle anesthesia, urinary or bowel incontinence or retention, changing or worsening pain) that necessitate immediate return. Medication warnings reviewed. All questions and concerns answered by this provider. Patient is in agreement with this plan and has verbalized understanding of return precautions and the need for primary care follow-up in the next 24-72 hours. Patient verbalized understanding of plan of care and agree with plan of care. - Vital Signs Vital signs: Temp Pulse Resp BP Pulse Ox 99.2 F 78 18 115/62 92 10/19/17 13:00 10/19/17 13:00 10/19/17 13:00 10/19/17 13:00 10/19/17 13:00 Discharge - Discharge Clinical Impression: Muscle strain of left thigh Qualifiers: Encounter type: initial encounter Qualified Code(s): S76.912A - Strain of unspecified muscles, fascia and tendons at thigh level, left thigh, initial encounter Condition: Stable Disposition: HOME, SELF-CARE Instructions: Muscle Strain ([facility]), Muscle Relaxers ([facility]), Myalagia (Muscle Pain ) ([facility]) Additional Instructions: Sprain Your injury is a sprain. A sprain results from stretching or tearing of the ligaments, usually from a twisting injury. The ligaments will require time and protection in order to heal properly. Many sprains are quite disabling and should be taken seriously. The usual initial treatment of sprains is cold packs, elevation, and rest of the injured area. Your physician has assessed the seriousness of your ligament injury, and has outlined a treatment plan. Understand that this treatment may change, depending on how you progress. If a re-examination was recommended, it is important that you follow up as instructed. Call the doctor any time if there is severe pain, numbness, or loss of function in the injured area. Do not drive, drink alcohol or operate heavy machinery while taking medication as it can cause drowsiness and sedation. Follow-up with energy management specialist within 1 week. Follow-up with primary care provider within 3 days. Please follow up with the [facility] [address] [place] [id number] Return immediately for any new or worsening symptoms. Follow up with primary care provider, call tomorrow to make followup appointment. Prescriptions: Cyclobenzaprine HCl 5 mg PO TIDP PRN #9 tablet PRN Reason: Forms: Return to Work Referrals: KEO CLIFFORD MD [Primary Care Provider] - Follow up in 3-5 days WILLIE LEE MD [ACTIVE STAFF] - Follow up in 3-5 days
--- NOTE | 2017-10-19 15:45 | XCELERA REPORT ---
[address] [address] Lower Extremity Venous Evaluation Name: JEF SIMPSON I Age: 57 yrs Gender: Female : 1960 Patient Status: Emergency Patient Location: ER Study Date: 10/19/2017 02:59 PM Procedure: Color flow and duplex imaging of the veins of the left lower extremity as well as the right Common Femoral vein. Reason For Study: post upper left leg pain cor 7 days Ordering Physician: FAB STANLEY Performed By: Nanette Puga Right Sided Venous Evaluation The right common femoral vein is fully compressible. Spontaneous and phasic flow is present in the right common femoral vein. Left Sided Venous Evaluation Normal vessel filling wall to wall, compression and augmentation as well as Colour flow down to the infrageniculate veins. Interpretation Summary No duplex evidence of DVT or obstruction in the left lower extremity nor in the right Common Femoral vein. : FAB STANLEY > Emmanuel Delgado
--- NOTE | 2017-10-19 15:57 | RADIOLOGY REPORT (SQ) ---
EXAM DESCRIPTION: FEMUR LEFT COMPLETED DATE/TIME: 10/19/2017 3:45 pm REASON FOR STUDY: acute left thigh pain COMPARISON: None. NUMBER OF VIEWS: Two views. TECHNIQUE: Two radiographic images acquired of the left femur to include hip and knee in at least on e projection. LIMITATIONS: None. FINDINGS: MINERALIZATION: Normal. BONES: No acute fracture. No worrisome bone lesions. SOFT TISSUES: No obvious swelling or foreign body. OTHER: No other significant finding. IMPRESSION: NEGATIVE STUDY OF THE LEFT FEMUR. NO RADIOGRAPHIC EVIDENCE OF ACUTE INJURY. TECHNICAL DOCUMENTATION: JOB ID: [id number] [employer]- All Rights Reserved Reading location - IP/workstation name: [email or web address]
[2017-10-19] MEDS ORDERED: CYCLOBENZAPRINE HCL 10 MG TABLET PO ONE (16:12)
[2017-10-19 16:45] VITALS: BP 112/56
== END 2017-10-19 16:35 | disposition home or self-care (01) ==
LOC: ER 12:35
DX: S76.912A Strain of unspecified muscles, fascia and tendons at thigh level, left thigh, initial encounter (principal); X58.XXXA Exposure to other specified factors, initial encounter; I50.9 Heart failure, unspecified; E78.00 Pure hypercholesterolemia, unspecified; I11.0 Hypertensive heart disease with heart failure; Z98.51 Tubal ligation status
CPT/HCPCS: 99284; 93971 ×2; 73552; A9270

== ENCOUNTER → 2018-12-30 | Outpatient (CLI) | payer MEDICARE, MEDICAID ==
--- NOTE | 2018-12-30 14:02 | WOMENS IMAGING REPORT ---
EXAM DESCRIPTION: BILAT SCREENING MAMMO W/CAD COMPLETED DATE/TIME: 12/30/2018 1:44 pm REASON FOR STUDY: ROUTINE BILATERAL SCREENING;Z12.31 Z12.31 ENCNTR SCREEN MAMMOGRAM FOR MALIGNANT N EOPLASM OF CESARIO COMPARISON: 12/29/2016 and 10/30/2015. EXAM PARAMETERS: Standard craniocaudal and mediolateral oblique views of each breast recorded using digital acquisition. Read with the assistance of CAD. .[facility] - [employer] Desk Assistant Version 9.2 LIMITATIONS: None. FINDINGS: No suspicious masses, suspicious calcifications or architectural distortion. No areas of c oncern. IMPRESSION: Negative MAMMOGRAM. BIRADS 1 BREAST DENSITY: b. There are scattered areas of fibroglandular density. BIRAD: ASSESSMENT: 1 NEGATIVE RECOMMENDATION: ROUTINE SCREENING COMMENT: The patient has been notified of the results by letter per MQSA requirements. Additional no tification policies are in place for contacting patient with suspicious or incomplete findings. Quality ID #[id number]: The [employer] recommends an annual screening mammogram for women aged 40 years or over. This facility utilizes a reminder system to ensure that all patients receive reminder letters, and/or direct phone calls for appointments. This includes reminders for routine scr eening mammograms, diagnostic mammograms, or other Breast Imaging Interventions when appropriate. Th is patient will be placed in the appropriate reminder system. TECHNICAL DOCUMENTATION: FINDING NUMBER: (1) ASSESSMENT: (1) JOB ID: [id number] [employer]- All Rights Reserved Reading location - IP/workstation name: [email or web address]
== END ==
LOC: WI 12:15
PROVIDERS: ATTEND Internal Medicine
DX: Z12.31 Encounter for screening mammogram for malignant neoplasm of breast (principal)
CPT/HCPCS: 77067